=== PATIENT | female | born 1985 | race Hispanic/Latino ===

== ENCOUNTER 2018-03-04 03:59 | Inpatient (IN) | payer BC ==
[2018-03-04] MEDS ORDERED: Ringers Lactate 1,000 ML IV PRN (04:39)
[2018-03-04] MEDS ORDERED: Ringers Lactate 1,000 ML IV SCH (05:00)
[2018-03-04 05:06] LABS: RPR Titer ND
[2018-03-04] MEDS ORDERED: BUTORPHANOL 1 MG/ML INJ IV PRN (05:07)
[2018-03-04] MEDS ORDERED: PROMETHAZINE 25 MG/ML VIAL IV PRN (05:08)
[2018-03-04 05:12] LABS: Absolute Lymphocytes (CBC) 2.5 K/uL (0.7-4.9); Absolute Monocytes 0.6 K/uL (0.1-1.3); Absolute Neutrophil 11.2 K/uL (1.8-8.0); Basophils % 0.6 % (0-1.3); Eosinophils % 0.5 % (0-4.4); Hematocrit 40.8 % (36.0-45.0); Lymphocytes % 17.3 % (15.3-44.8); MCH 29.9 pg (27.0-35.0); MPV 10.1 fL (7.6-11.3); Monocytes % 4.4 % (3.3-12.3); RBC Red Blood Cell Count 4.74 M/uL (3.86-4.86); Urine Appearance CLEAR; Urine Bilirubin NEGATIVE (NEG); Urine Blood NEGATIVE (NEG); Urine Color YELLOW; Urine Glucose NEGATIVE (NEG); Urine Protein TRACE (NEG); Urine Specific Gravity 1.025 (1.005-1.030); Urine Urobilinogen 0.2 mg/dL (0.2-1.0); Urine pH 6.5 (5.0-7.0)
[2018-03-04 05:41] LABS: Urine Microscopic Reflex ORDER UMIC
[2018-03-04 05:54] LABS: Urine Bacteria <20 /HPF (<20); Urine RBC NONE SEEN /HPF (NONE SEEN)
[2018-03-04 05:55] LABS: Urine Culture Reflex Order NOT NEEDED; Urine Mucus HEAVY /HPF (NONE SEEN)
[2018-03-04] MEDS ORDERED: FENTANYL CITR 100 MCG/2 ML ONE (06:19)
[2018-03-04] MEDS ORDERED: ROPIVACAINE HCL 100 ML IV ONE (06:20)
[2018-03-04] MEDS ORDERED: ROPIVACAINE HCL 0 ML ONE (06:20)
--- NOTE | 2018-03-04 07:11 | PREOPHP ---
Date of Admission: 03/04/2018 Indication: Ms. Mathis is a 32-year-old female, 2, para 1-0-0-0, with prior child dying from failure to thrive and unspecified condition at approximately 5-6 years of age. Ms. Mathis has been followed by me during this without complications other than prior w ith poor history. All testing has been normal. She presents to Labor and Delivery with contractions since earlier in the evening. She denies rupture of membranes, significant vaginal bleeding, or spo tting. Past Medical History: Please see records. Family History: Please see records. Review of Systems: She reports no recent cough, cold, fever, or chills. No recent nausea or vomiting. She denies any b reast lumps. Infant has been active. She denies rupture of membranes or any significant vaginal ble eding. She denies any bowel issues or bladder issues. Physical Examination: General: Reveals pleasant female, in mild discomfort. Neck: Supple without adenopathy or thyromegaly. Lungs: Clear. Cardiac: Regular rate and rhythm without murmurs. Breasts: Not examined. Abdomen: Estimated weight approximately 7+ pounds. Pelvic: Cervix noted to be 3 cm, completely effaced, -1 to 0 station, vertex presentation. Extremities: Trace lower extremity edema. Impression: Thirty-nine week , active labor, prior poor obstetrical history. Plan: The patient will be admitted for labor. MARIELOS/TRIXIE Voice ID: [id number]
[2018-03-04] MEDS ORDERED: OXYTOCIN/LR 20 UNIT/1,000 ML BAG IV ONE (07:13)
[2018-03-04 08:14] VITALS: BMI 29.0
[2018-03-04] MEDS ORDERED: CARBOPROST TROME 250 MCG/ML IM ONE (08:17)
[2018-03-04] MEDS ORDERED: METHYLERGONOVINE 0.2MG/ML AMP IM ONE (08:18)
[2018-03-04] MEDS ORDERED: LIDOCAINE 1% MPF 5 ML VIAL ONE (10:25)
[2018-03-04] MEDS ORDERED: CARBOPROST TROME 250 MCG/ML IM PRN (10:29)
[2018-03-04] MEDS ORDERED: IBUPROFEN 200 MG TAB PO PRN (10:29)
[2018-03-04] MEDS ORDERED: METHYLERGONOVINE 0.2MG/ML AMP IM PRN (10:29)
[2018-03-04] MEDS ORDERED: ONDANSETRON 4 MG (ODT) TAB PO PRN (10:29)
[2018-03-04] MEDS ORDERED: METHYLERGONOVINE 0.2 MG TAB PO PRN (10:29)
[2018-03-04] MEDS ORDERED: Oxycodone HCl/Acetaminophen 1 TAB TAB PO PRN (10:29)
--- NOTE | 2018-03-04 10:33 | P.BOP ---
Preoperative diagnosis: 39 week Postoperative diagnosis: Viable female infant delivered, repair of perineal lacerationsX2 Primary procedure: SCVD viable infant Estimated blood loss: Less than 300ml Anesthesia: epidural Complications: None Transferred to: Other (274) Condition: Good
[2018-03-04] MEDS ORDERED: OXYTOCIN/LR 20 UNIT/1,000 ML BAG IV SCH (11:00)
[2018-03-04] MEDS ORDERED: Ringers Lactate 2,000 ML IV ONE (17:40)
[2018-03-04 18:18] LABS: RPR (Rapid Plasma Reagin) NON-REACT (NON-REACT)
[2018-03-05 14:43] VITALS: BP 125/80; TEMP 98
--- NOTE | 2018-03-05 17:13 | OP ---
Surgeon: Wai Tadeo MD Delivery Note: Ms. Mathis is a 32-year-old female, 2, para 1-0-0-0 with 1 p rior child expiring approximately 8 years of life. Her family had just arrive. She has been followe d by me during this with that history and presents at 39 weeks gestation with early labor, noted to be 3 cm dilated and completely effaced, -1 station, vertex presentation. After admission, a ugmentation with Pitocin., She had a first stage of labor of approximately 2 hours and 8 minutes. S econd stage of labor 52 minute. She delivered by spontaneous controlled vaginal delivery by low outl et forceps of a 7 pounds 10 ounce female infant, 7 and 9. The infant was delivered vertex OA. The cord was clamped, cut, and because of some limpness on the part of the , the infant was pl aced in a warmer rather the mother's abdomen. Cord blood was obtained. Placenta was spontaneously e xpelled and appeared to be intact. Intrauterine examination revealed no retained placental fragments . Right mediolateral episiotomy had been performed. This was repaired in the usual fashion with 3-0 Vicryl suture. Estimated total blood loss was less than 400 cc. The patient had 1 mg of Stadol, 12 .5 mg of Phenergan IV given initially and then epidural catheter was placed and received excellent be nefit from this. She was delivered by low outlet forceps secondary to moderate variable deceleration s during portion of second stage of labor. MARIELOS/TRIXIE Voice ID: [id number] Report ID: [id number]
--- NOTE | 2018-03-06 04:58 | DS ---
Date of Discharge: 03/05/2018 DISMISSAL SUMMARY Final Hospital Discharge Diagnosis: A 39 week , delivered. Complications: None. Procedures: Artificial rupture of membranes, Pitocin augmentation of labor, low outlet forceps deliv lazaro of viable female infant, right midline episiotomy with repair. Hospital Course: The patient is a 32-year-old female, 2, para 1-0-0-0, 39 w eeks gestation, admitted in prodromal labor. She had an uneventful labor and delivery and delivered a 7-pound 10-ounce female , Apgars 7 and 9 with epidural anesthesia over a right midline episio estefani. She was dismissed on the first day, ambulatory on a select diet with routine post v aginal delivery activity restrictions, to be seen back in my office in 6 weeks. Lab work included an admission hemoglobin and hematocrit of 14.2 and 40.8, dismissal hematocrit of 38.0. She had a negat gladys urinalysis and nonreactive RPR. She is O positive blood type, rubella immune. She was dismissed to be seen back in my office in 6 weeks with the usual post vaginal delivery activity restrictions w ith a prescription for Tylenol No. 3 #15 for pain relief. MARIELOS/TRIXIE Voice ID: [id number] Report ID: [id number]
[2018-03-06 14:07] LABS: HBsAG Nonreactive (Nonreactive)
== END 2018-03-05 14:25 | disposition home or self-care (01) | DRG 775 ==
LOC: L&D 03:59 → 2ND-WC 04:52
PROVIDERS: ADMIT Specialist; ATTEND Specialist
PROC: 10D07Z3 Extraction of Products of Conception, Low Forceps, Via Natural or Artificial Opening (ICD-10-PCS; principal; 2018-03-04)
PROC: 0W8NXZZ Division of Female Perineum, External Approach (ICD-10-PCS; 2018-03-04)
PROC: 10907ZC Drainage of Amniotic Fluid, Therapeutic from Products of Conception, Via Natural or Artificial Opening (ICD-10-PCS; 2018-03-04)
PROC: 0HQ9XZZ Repair Perineum Skin, External Approach (ICD-10-PCS; 2018-03-04)
DX: O76 Abnormality in fetal heart rate and rhythm complicating labor and delivery (principal); Z3A.39 39 weeks gestation of pregnancy; Z37.0 Single live birth; O70.0 First degree perineal laceration during delivery
CPT/HCPCS: 36415; 81003; 81015; 85014; 85025; 86592; 86850; 86900; 86901; 87340; J0595; J2210; J2550; J2590; J2795; J3010

== ENCOUNTER 2020-07-23 21:47 | Emergency (ER) | payer BC ==
--- OUTSIDE RECORDS SUMMARY | 2020-07-23 21:50 | XMS REPORT | Continuity of Care Document ---
:1985 Author Organization [facility] Care Team Providers Name Role Phone [facility] Unavailable Un available Problems Problem Status Onset Classification Date Comments Sourc e Date Reported Multiple Active 12/30[facility]2013 [facility] Sclerosis Burning Active 12/30/2013 [facility] Sensation (Dysesthesia) Chronic Active 12/30/2013 [facility] Tension-type Headache Chronic Active 08/26/2012 [facility] Tension-Type Headache Memory Lapses Active 12/30/2013 [facility] Or Loss Fatigue Active 12/30/2013 [facility] Medications Medication Details Route Status Patient Ordering Order Source Instructions Provider Date FLUoxetine HCl ; Start Date: Active [facility] 10 MG Oral 12/30/20132013 [facility] Tablet End Date: (Active) Copaxone 20 ; Start Date: Active 07/01/ [facility] 07/01/20132012 [facility] Subcutaneous (Active) Kit Amantadine HCl ; Start Date: Active 07/01/ [facility] 100 MG Oral 07/01/20132012 Physician [facility] Tablet (Active) Copaxone 20 ; Start Date: Active 07/01/ [facility]/ML 07/01/20132012 [facility] Subcutaneous (Active) Kit Copaxone 20 ; Start Date: Inactive 08/25/ [facility] ; 1900 [facility] Subcutaneous End Date: Kit (Active) Copaxone 20 (Active) Active [facility] Subcutaneous Kit No Active No Active Active [facility] Allergies, Adverse Reactions, Alerts Substance Category Reaction Severity Reaction Status Date Comments S ource type Reported No Known drug drug Active [facility] allergy allergy [facility] Allergies Immunizations No Data Provided for This Section Results No Data Provided for This Section Pathology Reports No Data Provided for This Section Diagnostic Reports No Data Provided for This Section Consultation Notes No Data Provided for This Section Discharge Summaries No Data Provided for This Section History and Physicals No Data Provided for This Section Vital Signs No Data Provided for This Section Encounters Location Location Encounter Encounter Reason Attending ADM OR Stat us Source Details Type Number For Provider Date Date Visit AUDIT [id number] 03/19 /2011 [facility] AUD[facility] [id number] 03/19 /2011 [facility] [place], [id number] 04/17 03/19 [facility] Provider: SIMEON Mcwilliams, Status: Pen, Time: 11:00 AM AUDIT [id number] 04/17 [facility] AUDIT [id number] 04/23 /2011 [facility] AUDIT [id number] 07/09 /2011 [facility] AUDIT [id number] 08/26 /2012 [facility] IEJeanine, [id number] 01/07 08/26 [facility] Provider: SIMEON Mcwilliams, Status: Pen, Time: 4:30 PM AUDIT [id number] 01/07 /2012 [facility] AUDIT [id number] 01/14 /2012 [facility] AUD[facility] [id number] 01/22 /2012 [facility] AUDIT [id number] 02/26 /2012 [facility] IEJeanine, [id number] 07/01 02/27 [facility] Provider: SIMEON Mcwilliams, Status: Pen, Time: 11:00 AM AUDIT [id number] 07/01 /2012 [facility] AUDIT [id number] 07/06 /2012 [facility] [place], [id number] 12/30 07/07 [facility] Provider: SIMEON Mcwilliams, Status: Pen, Time: 11:00 AM AUDIT [id number] 12/30 [facility] Procedures No Data Provided for This Section Assessment and Plan No Data Provided for This Section Plan of Care Plan of Care Date Source [Q] COMPREHENSIVE METABOLIC PANEL 12/30/2013 [facility] W/eGFR (REFL) 07/01/2013 [facility][QLH] CBC (INCLUDES DIFF/PLT) 07/01/2013 Rout[facility][LH] Vitamin D, 25-Hydroxy, Total* (E) 07/01/2013 Routine[QL] VITAMIN D, 25-HYDROXY, LC/MS/MS 12/30/2013 Routine [QL] VITAMIN D, 25-HYDROXY, 07/07/2013 [facility] LC/MS/MS 07/09/2012 Routine[Q] COMPREHENSIVE METABOLIC PANEL W/eGFR (REFL) 07/31/2012 Routine[Q] COMPREHENSIVE METABOLIC PANEL W/eGFR (REFL) 07/01/2013 Routine[QLH] CBC (INCLUDES DIFF/PLT) 07/01/2013 Routine[LH] Vitamin D, 25-Hydroxy, Total* (E) 07/01/2013 Routine [QL] VITAMIN D, 25-HYDROXY, 07/01/2013 [facility] LC/MS/MS 07/09/2012 Routine[Q] COMPREHENSIVE METABOLIC PANEL W/eGFR (REFL) 07/31/2012 Routine[Q] COMPREHENSIVE METABOLIC PANEL W/eGFR (REFL) 07/01/2013 Routine[QLH] CBC (INCLUDES DIFF/PLT) 07/01/2013 Routine[LH] Vitamin D, 25-Hydroxy, Total* (E) 07/01/2013 Routine [QL] NEUROMYELITIS OPTICA NMO 02/27/2013 [facility] AUTOANTIBODY, IGG,SERUM 03/19/2012 Routine[H] C-ANCA Titer 03/19/2012 Routine[H] P-ANCA Titer 03/19/2012 Routine[QLH] DNA (DS) ANTIBODY 03/19/2012 Routine[L] WENDI 03/19/2012 Routine[QLH] ANGIOTENSIN CONVERTING ENZYME (DEBI) 03/19/2012 Routine[QLH] SJOGRENS ANTIBODIES (SS-A,SS-B) 03/19/2012 Routine[QLH] Lupus Anticoagulant Panel 03/19/2012 Routine[QLH] RPR 03/19/2012 Routine[QL] ANTIPHOSPHOLIPID ANTIBODY PANEL 03/19/2012 Routine[Q] METHYLMALONIC ACID AND HOMOCYSTEINE (NUTRITIONAL AND CONGENITAL) 03/19/2012 Routine[QLH] VITAMIN B12 03/19/2012 RoutineLumbar Puncture 04/17/2012 Routine[LH] IgG CSF 04/17/2012 Routine[QLH] OLIGOCLONAL BANDS, CSF 04/17/2012 Routine[QLH] CELL COUNT AND DIFF, CSF 04/17/2012 Routine[QLH] PROTEIN, TOTAL, CSF 04/17/2012 Routine[QLH] GLUCOSE, CSF 04/17/2012 Routine[Q] COMPREHENSIVE METABOLIC PANEL W/eGFR (REFL) 07/31/2012 Routine[QL] VITAMIN D, 25-HYDROXY, LC/MS/MS 07/09/2012 Routine [QL] NEUROMYELITIS OPTICA NMO 01/23/2013 [facility] AUTOANTIBODY, IGG,SERUM 03/19/2012 Routine[H] C-ANCA Titer 03/19/2012 Routine[H] P-ANCA Titer 03/19/2012 Routine[QLH] DNA (DS) ANTIBODY 03/19/2012 Routine[L] WENDI 03/19/2012 Routine[QLH] ANGIOTENSIN CONVERTING ENZYME (DEBI) 03/19/2012 Routine[QLH] SJOGRENS ANTIBODIES (SS-A,SS-B) 03/19/2012 Routine[QLH] Lupus Anticoagulant Panel 03/19/2012 Routine[QLH] RPR 03/19/2012 Routine[QL] ANTIPHOSPHOLIPID ANTIBODY PANEL 03/19/2012 Routine[Q] METHYLMALONIC ACID AND HOMOCYSTEINE (NUTRITIONAL AND CONGENITAL) 03/19/2012 Routine[QLH] VITAMIN B12 03/19/2012 RoutineLumbar Puncture 04/17/2012 Routine[LH] IgG CSF 04/17/2012 Routine[QLH] OLIGOCLONAL BANDS, CSF 04/17/2012 Routine[QLH] CELL COUNT AND DIFF, CSF 04/17/2012 Routine[QLH] PROTEIN, TOTAL, CSF 04/17/2012 Routine[QLH] GLUCOSE, CSF 04/17/2012 Routine[QL] VITAMIN D, 25-HYDROXY, LC/MS/MS 07/09/2012 Routine[Q] COMPREHENSIVE METABOLIC PANEL W/eGFR (REFL) 07/31/2012 Routine [QLH] DNA (DS) ANTIBODY 03/19/2012 01/15/2013 [facility] Routine[H] P-ANCA Titer 03/19/2012 Routine[H] C-ANCA Titer 03/19/2012 Routine[QL] NEUROMYELITIS OPTICA NMO AUTOANTIBODY, IGG,SERUM 03/19/2012 Routine[QLH] VITAMIN B12 03/19/2012 Routine[Q] METHYLMALONIC ACID AND HOMOCYSTEINE (NUTRITIONAL AND CONGENITAL) 03/19/2012 Routine[QL] ANTIPHOSPHOLIPID ANTIBODY PANEL 03/19/2012 Routine[QLH] SJOGRENS ANTIBODIES (SS-A,SS-B) 03/19/2012 Routine[QLH] ANGIOTENSIN CONVERTING ENZYME (DEBI) 03/19/2012 Routine[L] WENDI 03/19/2012 Routine[QLH] RPR 03/19/2012 Routine[QLH] Lupus Anticoagulant Panel 03/19/2012 Routine[QL] VITAMIN D, 25-HYDROXY, LC/MS/MS 07/09/2012 Routine[Q] COMPREHENSIVE METABOLIC PANEL W/eGFR (REFL) 07/31/2012 Routine[QLH] GLUCOSE, CSF 04/17/2012 Routine[QLH] PROTEIN, TOTAL, CSF 04/17/2012 RoutineLumbar Puncture 04/17/2012 Routine[QLH] CELL COUNT AND DIFF, CSF 04/17/2012 Routine[QLH] OLIGOCLONAL BANDS, CSF 04/17/2012 Routine[LH] IgG CSF 04/17/2012 Routine [QL] NEUROMYELITIS OPTICA NMO 01/08/2013 [facility] AUTOANTIBODY, IGG,SERUM 03/19/2012 Routine[H] C-ANCA Titer 03/19/2012 Routine[H] P-ANCA Titer 03/19/2012 Routine[QLH] DNA (DS) ANTIBODY 03/19/2012 Routine[L] WENDI 03/19/2012 Routine[QLH] ANGIOTENSIN CONVERTING ENZYME (EDBI) 03/19/2012 Routine[QLH] SJOGRENS ANTIBODIES (SS-A,SS-B) 03/19/2012 Routine[QLH] Lupus Anticoagulant Panel 03/19/2012 Routine[QLH] RPR 03/19/2012 Routine[QL] ANTIPHOSPHOLIPID ANTIBODY PANEL 03/19/2012 Routine[Q] METHYLMALONIC ACID AND HOMOCYSTEINE (NUTRITIONAL AND CONGENITAL) 03/19/2012 Routine[QLH] VITAMIN B12 03/19/2012 RoutineLumbar Puncture 04/17/2012 Routine[LH] IgG CSF 04/17/2012 Routine[QLH] OLIGOCLONAL BANDS, CSF 04/17/2012 Routine[QLH] CELL COUNT AND DIFF, CSF 04/17/2012 Routine[QLH] PROTEIN, TOTAL, CSF 04/17/2012 Routine[QLH] GLUCOSE, CSF 04/17/2012 Routine[QL] VITAMIN D, 25-HYDROXY, LC/MS/MS 07/09/2012 Routine[Q] COMPREHENSIVE METABOLIC PANEL W/eGFR (REFL) 07/31/2012 Routine [QL] VITAMIN D, 25-HYDROXY, 08/26/2012 [facility] LC/MS/MS 07/09/2012 Routine[QLH] VITAMIN B12 03/19/2012 Routine[Q] METHYLMALONIC ACID AND HOMOCYSTEINE (NUTRITIONAL AND CONGENITAL) 03/19/2012 Routine[QL] ANTIPHOSPHOLIPID ANTIBODY PANEL 03/19/2012 Routine[QLH] RPR 03/19/2012 Routine[QLH] Lupus Anticoagulant Panel 03/19/2012 Routine[QLH] SJOGRENS ANTIBODIES (SS-A,SS-B) 03/19/2012 Routine[QLH] ANGIOTENSIN CONVERTING ENZYME (DEBI) 03/19/2012 Routine[L] WENDI 03/19/2012 Routine[QLH] DNA (DS) ANTIBODY 03/19/2012 Routine[H] P-ANCA Titer 03/19/2012 Routine[H] C-ANCA Titer 03/19/2012 Routine[QL] NEUROMYELITIS OPTICA NMO AUTOANTIBODY, IGG,SERUM 03/19/2012 Routine[Q] COMPREHENSIVE METABOLIC PANEL W/eGFR (REFL) 07/31/2012 Routine[QLH] GLUCOSE, CSF 04/17/2012 Routine[QLH] PROTEIN, TOTAL, CSF 04/17/2012 Routine[QLH] CELL COUNT AND DIFF, CSF 04/17/2012 Routine[QLH] OLIGOCLONAL BANDS, CSF 04/17/2012 Routine[LH] IgG CSF 04/17/2012 RoutineLumbar Puncture 04/17/2012 Routine [QL] NEUROMYELITIS OPTICA NMO 07/09/2012 [facility] AUTOANTIBODY, IGG,SERUM 03/19/2012 Routine[H] C-ANCA Titer 03/19/2012 Routine[H] P-ANCA Titer 03/19/2012 Routine[QLH] DNA (DS) ANTIBODY 03/19/2012 Routine[L] WENDI 03/19/2012 Routine[QLH] ANGIOTENSIN CONVERTING ENZYME (DEBI) 03/19/2012 Routine[QLH] SJOGRENS ANTIBODIES (SS-A,SS-B) 03/19/2012 Routine[QLH] Lupus Anticoagulant Panel 03/19/2012 Routine[QLH] RPR 03/19/2012 Routine[QL] ANTIPHOSPHOLIPID ANTIBODY PANEL 03/19/2012 Routine[Q] METHYLMALONIC ACID AND HOMOCYSTEINE (NUTRITIONAL AND CONGENITAL) 03/19/2012 Routine[QLH] VITAMIN B12 03/19/2012 RoutineLumbar Puncture 04/17/2012 Routine[LH] IgG CSF 04/17/2012 Routine[QLH] OLIGOCLONAL BANDS, CSF 04/17/2012 Routine[QLH] CELL COUNT AND DIFF, CSF 04/17/2012 Routine[QLH] PROTEIN, TOTAL, CSF 04/17/2012 Routine[QLH] GLUCOSE, CSF 04/17/2012 Routine[QLH] CBC (INCLUDES DIFF/PLT) 07/09/2012 Routine[QLH] CMP W/EGFR 07/09/2012 Routine[QLH] CBC (INCLUDES DIFF/PLT) 07/09/2012 Routine[QLH] CMP W/EGFR 07/09/2012 Routine[QL] VITAMIN D, 25-HYDROXY, LC/MS/MS 07/09/2012 Routine [QL] NEUROMYELITIS OPTICA NMO 04/23/2012 [facility] AUTOANTIBODY, IGG,SERUM 03/19/2012 Routine[H] C-ANCA Titer 03/19/2012 Routine[H] P-ANCA Titer 03/19/2012 Routine[QLH] DNA (DS) ANTIBODY 03/19/2012 Routine[L] WENDI 03/19/2012 Routine[QLH] ANGIOTENSIN CONVERTING ENZYME (DEBI) 03/19/2012 Routine[QLH] SJOGRENS ANTIBODIES (SS-A,SS-B) 03/19/2012 Routine[QLH] Lupus Anticoagulant Panel 03/19/2012 Routine[QLH] RPR 03/19/2012 Routine[QL] ANTIPHOSPHOLIPID ANTIBODY PANEL 03/19/2012 Routine[Q] METHYLMALONIC ACID AND HOMOCYSTEINE (NUTRITIONAL AND CONGENITAL) 03/19/2012 Routine[QLH] VITAMIN B12 03/19/2012 RoutineLumbar Puncture 04/17/2012 Routine[LH] IgG CSF 04/17/2012 Routine[QLH] OLIGOCLONAL BANDS, CSF 04/17/2012 Routine[QLH] CELL COUNT AND DIFF, CSF 04/17/2012 Routine[QLH] PROTEIN, TOTAL, CSF 04/17/2012 Routine[QLH] GLUCOSE, CSF 04/17/2012 Routine [QL] NEUROMYELITIS OPTICA NMO 04/17/2012 [facility] AUTOANTIBODY, IGG,SERUM 03/19/2012 Routine[H] C-ANCA Titer 03/19/2012 Routine[H] P-ANCA Titer 03/19/2012 Routine[QLH] DNA (DS) ANTIBODY 03/19/2012 Routine[L] WENDI 03/19/2012 Routine[QLH] ANGIOTENSIN CONVERTING ENZYME (DEBI) 03/19/2012 Routine[QLH] SJOGRENS ANTIBODIES (SS-A,SS-B) 03/19/2012 Routine[QLH] Lupus Anticoagulant Panel 03/19/2012 Routine[QLH] RPR 03/19/2012 Routine[QL] ANTIPHOSPHOLIPID ANTIBODY PANEL 03/19/2012 Routine[Q] METHYLMALONIC ACID AND HOMOCYSTEINE (NUTRITIONAL AND CONGENITAL) 03/19/2012 Routine[QLH] VITAMIN B12 03/19/2012 RoutineLumbar Puncture 04/17/2012 Routine[LH] IgG CSF 04/17/2012 Routine[QLH] OLIGOCLONAL BANDS, CSF 04/17/2012 Routine[QLH] CELL COUNT AND DIFF, CSF 04/17/2012 Routine[QLH] PROTEIN, TOTAL, CSF 04/17/2012 Routine[QLH] GLUCOSE, CSF 04/17/2012 Routine [QL] NEUROMYELITIS OPTICA NMO 03/19/2012 [facility] AUTOANTIBODY, IGG,SERUM 03/19/2012 Routine[H] C-ANCA Titer 03/19/2012 Routine[H] P-ANCA Titer 03/19/2012 Routine[QLH] DNA (DS) ANTIBODY 03/19/2012 Routine[L] WENDI 03/19/2012 Routine[QLH] ANGIOTENSIN CONVERTING ENZYME (DEBI) 03/19/2012 Routine[QLH] SJOGRENS ANTIBODIES (SS-A,SS-B) 03/19/2012 Routine[QLH] Lupus Anticoagulant Panel 03/19/2012 Routine[QLH] RPR 03/19/2012 Routine[QL] ANTIPHOSPHOLIPID ANTIBODY PANEL 03/19/2012 Routine[Q] METHYLMALONIC ACID AND HOMOCYSTEINE (NUTRITIONAL AND CONGENITAL) 03/19/2012 Routine[QLH] VITAMIN B12 03/19/2012 Routine Social History Social History Date Source No History of Being A Social 12/30/2013 [facility] (Denied) Never A Smoker (Active) Family History Value Date Source Family history of Hyperlipidemia 12/30/2013 [facility] (Active) Family history of Hypertension (V17.49); (Active) Family history of Heart Disease (V17.49); (Active) Family history of Stroke Syndrome (V17.1); (Active) Family history of Hyperlipidemia 07/07/2013 [facility] (Active) Family history of Hypertension (V17.49); (Active) Family history of Heart Disease (V17.49); (Active) Family history of Stroke Syndrome (V17.1); (Active) Family history of Hyperlipidemia 07/01/2013 [facility] (Active) Family history of Hypertension (V17.49); (Active) Family history of Heart Disease (V17.49); (Active) Family history of Stroke Syndrome (V17.1); (Active) Family history of Stroke Syndrome 02/27/2013 [facility] (V17.1); (Active) Family history of Heart Disease (V17.49); (Active) Family history of Hypertension (V17.49); (Active) Family history of Hyperlipidemia (Active) Family history of Hyperlipidemia 01/23/2013 [facility] (Active) Family history of Hypertension (V17.49); (Active) Family history of Heart Disease (V17.49); (Active) Family history of Stroke Syndrome (V17.1); (Active) Family history of Hyperlipidemia 01/15/2013 [facility] (Active) Family history of Hypertension (V17.49); (Active) Family history of Heart Disease (V17.49); (Active) Family history of Stroke Syndrome (V17.1); (Active) Family history of Hyperlipidemia 01/08/2013 [facility] (Active) Family history of Hypertension (V17.49); (Active) Family history of Heart Disease (V17.49); (Active) Family history of Stroke Syndrome (V17.1); (Active) Family history of Hyperlipidemia 08/26/2012 [facility] (Active) Family history of Hypertension (V17.49); (Active) Family history of Heart Disease (V17.49); (Active) Family history of Stroke Syndrome (V17.1); (Active) Family history of Hyperlipidemia 07/09/2012 [facility] (Active) Family history of Hypertension (V17.49); (Active) Family history of Heart Disease (V17.49); (Active) Family history of Stroke Syndrome (V17.1); (Active) Family history of Hyperlipidemia 04/23/2012 [facility] (Active) Family history of Hypertension (V17.49); (Active) Family history of Heart Disease (V17.49); (Active) Family history of Stroke Syndrome (V17.1); (Active) Family history of Hyperlipidemia 04/17/2012 [facility] (Active) Family history of Hypertension (V17.49); (Active) Family history of Heart Disease (V17.49); (Active) Family history of Stroke Syndrome (V17.1); (Active) Family history of Hyperlipidemia 03/19/2012 [facility] (Active) Family history of Hypertension (V17.49); (Active) Family history of Heart Disease (V17.49); (Active) Family history of Stroke Syndrome (V17.1); (Active) Family history of Hyperlipidemia 03/19/2012 [facility] (Active) Family history of Hypertension (V17.49); (Active) Family history of Heart Disease (V17.49); (Active) Family history of Stroke Syndrome (V17.1); (Active) Advance Directives Order Name Results Value Date Source Advance Directives Advance Directives No Advance 12/30/2013 [facility] Directives available. Advance Directives Advance Directives No Advance 07/07/2013 [facility] Directives available. Advance Directives Advance Directives No Advance 07/01/2013 [facility] Directives available. Advance Directives Advance Directives No Advance 02/27/2013 [facility] Directives available. Advance Directives Advance Directives No Advance 01/23/2013 [facility] Directives available. Advance Directives Advance Directives No Advance 01/15/2013 [facility] Directives available. Advance Directives Advance Directives No Advance 01/08/2013 [facility] Directives available. Advance Directives Advance Directives No Advance 08/26/2012 [facility] Directives available. Advance Directives Advance Directives No Advance 07/09/2012 [facility] Directives available. Advance Directives Advance Directives No Advance 04/23/2012 [facility] Directives available. Advance Directives Advance Directives No Advance 04/17/2012 [facility] Directives available. Advance Directives Advance Directives No Advance 03/19/2012 [facility] Directives available. Advance Directives Advance Directives No Advance 03/19/2012 [facility] Directives available. Functional Status No Data Provided for This Section
[2020-07-23 22:20] LABS: Absolute Lymphocytes (CBC) 3.2 K/uL (0.7-4.9); Hematocrit 40.1 % (36.0-45.0); Lymphocytes % 39.5 % (15.3-44.8); MPV 8.4 fL (7.6-11.3); RBC Red Blood Cell Count 4.86 M/uL (3.86-4.86)
[2020-07-23 22:22] LABS: Protime INR 0.96
[2020-07-23] MEDS ORDERED: LORazepam 2 MG/ML VIAL ONE (22:41)
[2020-07-23 22:48] LABS: ALT/SGPT 17 U/L (12-78); AST/SGOT 15 U/L (15-37); Albumin 3.7 g/dL (3.4-5.0); Alkaline Phosphatase 74 U/L (45-117); BUN Blood Urea Nitrogen 13 mg/dL (7-18); Bicarbonate 26 mmol/L (21-32); Bilirubin Direct < 0.1 mg/dL (0-0.2); Bilirubin Total 0.2 mg/dL (0.2-1.0); Glucose Level 101 mg/dL (74-106); Magnesium 2.3 mg/dL (1.8-2.4); NT PRO-BNP 71 pg/mL (<125); Potassium 3.6 mmol/L (3.5-5.1); Protein, Total 7.6 g/dL (6.4-8.2); Sodium Level 140 mmol/L (136-145); Troponin (Emerg Dept Use Only) < 0.02 ng/mL (0.0-0.045)
--- NOTE | 2020-07-23 23:25 | EDPHYS ---
Physician Documentation [facility] Name: Brandy Mathis Age: 34 yrs Sex: Female : 1985 Arrival Date: 07/23/2020 Time: 21:48 Bed 5 Private MD: Larry Casillas B ED Physician Adeline Hernandez HPI: 07/23 22:15 This 34 yrs old Female presents to ER via Unassigned with complaints of Chest ma2 Pain, Numbness Of Arm. 22:15 The patient or guardian reports chest pain that is located primarily in the anterior ma2 chest wall. Associated signs and symptoms: Pertinent negatives: diaphoresis, lower extremity swelling, nausea. The chest pain is described as burning. Severity of pain: At its worst the pain was mild in the emergency department the pain is unchanged. Severity of pain: At its worst the pain was in the emergency department the pain is unchanged has resolved and did so just prior to arrival. The patient has not experienced similar symptoms in the past. 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 - Social history:: Patient/guardian denies using alcohol, street drugs, The patient lives with family, Smoking status: unknown Patient/guardian denies using. - Family history:: not pertinent. ROS: 22:15 Constitutional: Negative for fever, chills, and weight loss. ma2 22:15 All other systems are negative. Exam: 22:15 Constitutional: This is a well developed, well nourished patient who is awake, alert, ma2 and in no acute distress. Head/Face: Normocephalic, atraumatic. Eyes: Pupils equal round and reactive to light, extra-ocular motions intact. Lids and lashes normal. Conjunctiva and sclera are non-icteric and not injected. Cornea within normal limits. Periorbital areas with no swelling, redness, or edema. ENT: Nares patent. No nasal discharge, no septal abnormalities noted. Tympanic membranes are normal and external auditory canals are clear. Oropharynx with no redness, swelling, or masses, exudates, or evidence of obstruction, uvula midline. Mucous membranes moist. Neck: Trachea midline, no thyromegaly or masses palpated, and no cervical lymphadenopathy. Supple, full range of motion without nuchal rigidity, or vertebral point tenderness. No Meningismus. Chest/axilla: Normal chest wall appearance and motion. Nontender with no deformity. No lesions are appreciated. - reproducible chest pain Cardiovascular: Regular rate and rhythm with a normal S1 and S2. No gallops, murmurs, or rubs. Normal PMI, no JVD. No pulse deficits. Respiratory: Lungs have equal breath sounds bilaterally, clear to auscultation and percussion. No rales, rhonchi or wheezes noted. No increased work of breathing, no retractions or nasal flaring. Abdomen/GI: Soft, non-tender, with normal bowel sounds. No distension or tympany. No guarding or rebound. No evidence of tenderness throughout. Back: No spinal tenderness. No costovertebral tenderness. Full range of motion. Skin: Warm, dry with normal turgor. Normal color with no rashes, no lesions, and no evidence of cellulitis. MS/ Extremity: Pulses equal, no cyanosis. Neurovascular intact. Full, normal range of motion. Neuro: Awake and alert, GCS 15, oriented to person, place, time, and situation. Cranial nerves II-XII grossly intact. Motor strength 5/5 in all extremities. Sensory grossly intact. Cerebellar exam normal. Normal gait. Psych: Awake, alert, with orientation to person, place and time. Behavior, mood, and affect are within normal limits. Vital Signs: 22:00 BP 136 / 95; Pulse 74; Resp 16; Temp 98.4; Pulse Ox 100% ; Pain 6/10; rr5 22:34 Weight 64.86 kg; Height 5 ft. 5 in. (165.10 cm); rr5 23:00 BP 131 / 62; Pulse 79; Resp 17; Pulse Ox 100% ; rr5 23:44 BP 121 / 75; Pulse 70; Resp 19; Pulse Ox 99% ; rr5 22:34 Body Mass Index 23.80 (64.86 kg, 165.10 cm) rr5 MDM: 21:49 Patient medically screened. ma2 22:15 Differential diagnosis: anxiety, chest wall pain, gastroesophageal reflux disease ma2 (GERD), hiatal hernia. RACHAEL Risk Score: not applicable. Data reviewed: vital signs, nurses notes. 23:24 Counseling: I had a detailed discussion with the patient and/or guardian regarding: the [facility] historical points, exam findings, and any diagnostic results supporting the discharge/admit diagnosis, the presence of at least one elevated blood pressure reading (>120/80) during this emergency department visit, the need for outpatient follow up. Response to treatment: the patient's symptoms have resolved after treatment. 07/23 21:49 Order name: Basic Metabolic Panel; Complete Time: 23:05 la07/23 21:49 Order name: CBC with Diff; Complete Time: 23:05 la07/23 21:49 Order name: LFT's; Complete Time: 23:05 la07/23 21:49 Order name: Magnesium; Complete Time: 23:05 [facility] 07/23 21:49 Order name: NT PRO-BNP; Complete Time: 23:05 la07/23 21:49 Order name: PT-INR; Complete Time: 23:05 la07/23 21:49 Order name: Troponin (emerg Dept Use Only); Complete Time: 23:05 [facility] 07/23 21:49 Order name: XRAY Chest (1 view) [facility] 07/23 21:49 Order name: EKG; Complete Time: 21:51 07/23 21:49 Order name: Cardiac monitoring; Complete Time: 22:20 [facility] 07/23 21:49 Order name: EKG - Nurse/Tech; Complete Time: 22:20 la07/23 21:49 Order name: IV Saline Lock; Complete Time: 22:20 07/23 21:49 Order name: Labs collected and sent; Complete Time: 22:20 [facility] 07/23 21:49 Order name: O2 Per Protocol; Complete Time: 22:20 [facility] 07/23 21:49 Order name: O2 Sat Monitoring; Complete Time: 22:20 ma2 Administered Medications: 22:32 Drug: Ativan 1 mg Route: IVP; Site: left antecubital; ea 23:46 Follow up: Response: No adverse reaction rr5 Disposition: 07/23/20 23:24 Discharged to Home. Impression: Chest pain on breathing. - Condition is Stable. - Discharge Instructions: Chest Wall Pain. - Prescriptions for buspirone 5 mg Oral tablet - take 1 tablet by ORAL route 3 times per day; 30 tablet. - Medication Reconciliation Form, Thank You Letter, Antibiotic Education, Prescription Opioid Use, Work release form form. - Follow up: Private Physician; When: Tomorrow; Reason: If symptoms return. Signatures: Dispatcher [employer] EDJazlyn Shahid RN RN ea Alzahri, Mohammad, MD MD ma2 Addison Martinez RN RN rr5 Corrections: (The following items were deleted from the chart) 23:46 23:24 07/23/2020 23:24 Discharged to Home. Impression: Chest pain on breathing. rr5 Condition is Stable. Prescriptions for buspirone 5 mg Oral tablet - take 1 tablet by ORAL route 3 times per day; 30 tablet. and Forms are Medication Reconciliation Form, Thank You Letter, Antibiotic Education, Prescription Opioid Use. Follow up: Private Physician; When: Tomorrow; Reason: If symptoms return. ma2
--- NOTE | 2020-07-23 23:25 | ER ---
Nurse's Notes [facility] Name: Brandy Mathis Age: 34 yrs Sex: Female : 1985 Arrival Date: 07/23/2020 Time: 21:48 Bed 5 Private MD: Larry Casillas B Diagnosis: Chest pain on breathing Presentation: 07/23 22:00 Chief complaint: Patient states: having this chest discomfort and right arm numbness/ rr5 tingling feeling started today. 22:00 Coronavirus screen: Client denies travel out of the [place] in the last 14 days. At this rr5 time, the client does not indicate any symptoms associated with coronavirus-19. Ebola Screen: Patient negative for fever greater than or equal to 101.5 degrees Fahrenheit, and additional compatible Ebola Virus Disease symptoms Patient denies exposure to infectious person. Patient denies travel to an Ebola-affected area in the 21 days before illness onset. Initial Sepsis Screen: Does the patient meet any 2 criteria? No. Patient's initial sepsis screen is negative. Does the patient have a suspected source of infection? No. Patient's initial sepsis screen is negative. Risk Assessment: Do you want to hurt yourself or someone else? Patient reports no desire to harm self or others. Onset of symptoms was July 23, 2020. 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 - Social history:: Patient/guardian denies using alcohol, street drugs, The patient lives with family, Smoking status: unknown Patient/guardian denies using. - Family history:: not pertinent. Screenin:05 Abuse screen: Denies threats or abuse. Denies injuries from another. Nutritional rr5 screening: No deficits noted. Tuberculosis screening: No symptoms or risk factors identified. Fall Risk IV access (20 points). Total Ott Fall Scale indicates No Risk (0-24 pts). Assessment: 22:00 General: Appears in no apparent distress. uncomfortable, Behavior is calm, cooperative, rr5 appropriate for age. Pain: Complains of pain in chest Pain radiates to right arm Pain currently is 6 out of 10 on a pain scale. Quality of pain is described as aching, Pain began gradually, Is intermittent. Neuro: Level of Consciousness is awake, alert, obeys commands, Oriented to person, place, time, situation, Reports numbness in right arm. Cardiovascular: Reports chest pain, Capillary refill < 3 seconds Patient's skin is warm and dry. Respiratory: Airway is patent Respiratory effort is even, unlabored, Respiratory pattern is regular, symmetrical. GI: No signs and/or symptoms were reported involving the gastrointestinal system. : No signs and/or symptoms were reported regarding the genitourinary system. EENT: No signs and/or symptoms were reported regarding the EENT system. Derm: Skin is intact, is healthy with good turgor, Skin temperature is warm. Musculoskeletal: Capillary refill < 3 seconds, Reports pain in chest and right arm. 23:00 Reassessment: Patient appears in no apparent distress at this time. Patient is alert, rr5 oriented x 3, equal unlabored respirations, skin warm/dry/pink. awaiting for results. 23:42 Reassessment: Patient appears in no apparent distress at this time. Patient is alert, rr5 oriented x 3, equal unlabored respirations, skin warm/dry/pink. discharge instruction given and explained without complaints made. awaiting for her brother to pick her up. Vital Signs: 22:00 BP 136 / 95; Pulse 74; Resp 16; Temp 98.4; Pulse Ox 100% ; Pain 6/10; rr5 22:34 Weight 64.86 kg; Height 5 ft. 5 in. (165.10 cm); rr5 23:00 BP 131 / 62; Pulse 79; Resp 17; Pulse Ox 100% ; rr5 23:44 BP 121 / 75; Pulse 70; Resp 19; Pulse Ox 99% ; rr5 22:34 Body Mass Index 23.80 (64.86 kg, 165.10 cm) rr5 ED Course: 21:48 Patient arrived in ED. am2 21:49 Larry Casillas MD is Private Physician. am2 21:49 Adeline Hernandez MD is Attending Physician. ma2 22:00 Arm band placed on right wrist. rr5 22:00 EKG completed in triage. Results shown to MD. rr5 22:00 Patient has correct armband on for positive identification. Placed in gown. Bed in low rr5 position. Call light in reach. assistant curator on. Pulse ox on. NIBP on. 22:00 EKG done, by ED staff, reviewed by Adeline Hernandez MD. rr5 22:00 Patient maintains SpO2 saturation greater than 95% on room air. rr5 22:05 Inserted saline lock: 20 gauge in left forearm, using aseptic technique. Blood rr5 collected. 22:12 Addison Martinez, RN is Primary Nurse. rr5 22:13 XRAY Chest (1 view) In Process Unspecified. EDMS 22:16 Triage completed. rr5 23:45 No provider procedures requiring assistance completed. IV discontinued, intact, rr5 bleeding controlled, No redness/swelling at site. Pressure dressing applied. Administered Medications: 22:32 Drug: Ativan 1 mg Route: IVP; Site: left antecubital; ea 23:46 Follow up: Response: No adverse reaction rr5 Outcome: 23:24 Discharge ordered by . ma2 23:46 Discharged to home ambulatory. rr5 23:46 Condition: stable 23:46 Discharge instructions given to patient, Instructed on discharge instructions, follow up and referral plans. medication usage, Demonstrated understanding of instructions, follow-up care, medications, Prescriptions given X 1. 23:46 Patient left the ED. rr5 Signatures: Dispatcher [employer] [facility] Nieves Bridges Elena, RN RN ea Alzahri, Mohammad, MD MD ma2 Roque, Raymond, RN RN rr5
[2020-07-24 05:03] VITALS: TEMP 98.4
[2020-07-24 05:07] VITALS: BP 121/75; O2SAT 99
--- NOTE | 2020-07-24 07:51 | RAD REPORT ---
EXAM DESCRIPTION: RAD - Chest Single View - 07/23/2020 10:13 pm CLINICAL HISTORY: CHEST PAIN COMPARISON: Portable December 2011 TECHNIQUE: AP portable chest image was obtained 07/23/2020 10:13 pm . FINDINGS: Lungs are clear. Heart and vasculature are normal. No measurable pleural effusion and no p neumothorax. No acute bony abnormality seen. Thoracolumbar scoliosis present. No acute aortic finding s suspected. IMPRESSION: No acute cardiopulmonary process. No worrisome interval change
== END 2020-07-23 23:46 | disposition home or self-care (01) ==
LOC: ER 21:47
DX: R07.1 Chest pain on breathing (principal); G35 Multiple sclerosis
CPT/HCPCS: 36415; 71045; 80048; 80076; 83735; 83880; 84484; 85025; 85610; 93005; 96374; 99285

== ENCOUNTER 2023-02-10 12:10 | Emergency (ER) | payer BC ==
--- OUTSIDE RECORDS SUMMARY | 2023-02-10 12:37 | XMS REPORT | Continuity of Care Document ---
:1985 Author Organization [facility] t Address [address] [facility] [facility]. [address] [place] [address] Care Team Providers Name Role Phone No , Pcp Primary Care Physician Unavailable PAYAM BALDERAS Attending Clinician Unavailable ANNA PETERSON Attending Clinician Unavailable Anna Peterson MD Attending Clinician Doctor Unassigned, [place] Attending Clinician Unavailable Janelle Carrion MA Attending Clinician Unavailable Payers Payer Name Policy Type Policy Number Effective Date Expiration Date S ource [place] [id number] 2020 2020 00:00:0 0 OUT OF STATE 00:00:00 [id number] 2020 00:00:00 Problems Condition Condition Condition Status Onset Resolution Last Treating Co mments Source Name Details Category Date Date Treatment Clinician Date Surveillan Surveillan Disease Active U nivers ce of ce of [place] 00 Me [place]ical contracept contracept Br anch gladys pill gladys pill Multiple Multiple Disease Active Unive rs sclerosis sclerosis 01-10 ity of 00:00: [place] 00 Medical Branch Overweight Overweight Disease Active Overview : Univers -19 Formattin ity of 00:00: g of this [place] 00 note Medical might be Branch different from the original. 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 of 0-15 ity of uncertain uncertain 00:00: Kimber jamil behavior behavior 00 Medica l of skin of skin Branch Other Other Disease Active 2011-08 Univers seborrheic seborrheic 0-15 it y of dermatitis dermatitis [place] No known No known Disease [place] active active Health problems problems Allergies, Adverse Reactions, Alerts Allergy Allergy Status Severity Reaction(s) Onset Inactive Treating Comm ents Source Name Type Date Date Clinician NO KNOWN Drug Active Univers ALLERGIE Class ity of S [facility] Social History Social Habit Start Date Stop Date Quantity Comments Source History SDOH University o f Alcohol Binge [place] Medic al Branch History of Passive smoker University of tobacco use [facility] History SDOH University o f Alcohol Frequency [place] M edical Branch History SDOH University o f Alcohol Std [place] Medical Drinks Branch Exposure to 2022-11-04 2022-11-14 Not sure [facility] SARS-CoV-2 00:00:00 10:00:00 (event) Tobacco use and 2022-11-14 2022-11-14 Smokeless tobacco [facility] exposure 00:00:00 00:00:00 non-user Alcohol intake 2022-11-14 2022-11-14 Lifetime [facility] 00:00:00 00:00:00 non-drinker (finding) Alcohol Comment 2022-04-19 2022-04-19 socially Universit y of 00:00:00 00:00:00 [facility] Sex Assigned At [birth year] [facility] 00:00:00 00:00:00 Smoking Status Start Date Stop Date Source Tobacco smoking consumption unknown [facility] Never smoked tobacco [facility] Medications Ordered Filled Start Stop Current Ordering Indication Dosage Frequency Signature Comments Components Source Medication Medication Date Date Medication? Clinician (SIG) Name Name FLUoxetine 2022- No 40mg QD Take 40 mg UT (PROzac) 40 11-14 by mouth 1 H ealth MG capsule 10:19: 00:00 (one) time 03 :00 each day. FLUoxetine 2023- Yes [id number] 40mg QD Take 1 UT (PROzac) 40 11-14 capsule Heal th MG capsule 00:00: 04:59 (40 mg 00 :00 total) by mouth 1 (one) time each day. FLUoxetine 0 Yes 40mg QD Take 40 mg U T (PROzac) 40 9-22 by mouth 1 He alth MG capsule 10:14: (one) time 59 each day. glatiramer 0 Yes 40mg inject 40 Un saravanan (COPAXONE) 8-26 mg under ity o f 20 mg/mL 09:32[place] injection [place] ascorbic 0 Yes Take by Univer s acid 8-26 mouth. ity of (VITAMIN C 09:32: [place] ORAL) [address] [place] [address] Branch mecobalamin Yes Take by Uni vers (B12 ACTIVE 8-26 mouth. ity of ORAL) 09:32: [address] Branch calcium 0 Yes Take by Univers carbonate/v 8-26 mouth. ity of itamin D3 09:32: [place] (VITAMIN 33 Medical D-3 ORAL) [place] glatiramer Yes 40mg inject 40 Un saravanan (COPAXONE) 8-26 mg under ity o f 20 mg/mL 09:32: [place] injection [place] ascorbic 0 Yes Take by Univer s acid 8-26 mouth. ity of (VITAMIN C 09:32: [place] ORAL) [address] [place] [address] Branch mecobalamin 0 Yes Take by Uni vers (B12 ACTIVE 8-26 mouth. ity of ORAL) 09:32: [address] Branch calcium 0 Yes Take by Univers carbonate/v 8-26 mouth. ity of itamin D3 09:32: [place] (VITAMIN 33 Medical D-3 ORAL) Branch norgestimat 0 Yes [id number] 1{tbl} Take 1 Univers e-ethinyl 8-26 tablet by ity o f estradioL 00:00: [place] (ORTHO 00 the Medical TRI-CYCLEN morning. Branc h LO, 28,) 0.18/0.215/ 0.25 mg-25 mcg tablet norgestimat 0 Yes [id number] 1{tbl} Take 1 Univers e-ethinyl 8-26 tablet by ity o f estradioL 00:00: [place] ([place]TH[place] 00 the Medical TRI-CYCLEN morning. Branc h LO, 28,) 0.18/0.215/ 0.25 mg-25 mcg tablet norgestimat 2021- No [id number] 1{tbl} Take 1 Univers e-ethinyl 04-16 tablet by ity of estradioL 00:00: 00:00 mouth in [place] (ORTHO 00 :00 the Medical TRI-CYCLEN morning. Branc h LO, 28,) 0.18/0.215/ 0.25 mg-25 mcg tablet KESIMPTA Yes Univers PEN 20 8-09 ity of mg/0.4 mL 00:00: [place] PnIj [address] [place] [address] Branch KESIMPTA Yes Univers PEN 20 8-09 ity of mg/0.4 mL 00:00: [address] Branch Ofatumumab 2022- No [id number] 20mg Q30D Inject 20 UT (Kesimpta) 7- 07-07 mg under Heal th 20 MG/0.4ML 00:00: 04:59 the skin solution 00 :00 every 30 auto-inject (thirty) or days. Ofatumumab 2022- No [id number] .4mL Q28D Inject 0.4 UT (Kesimpta) 7- 07-07 mL under Heal th 20 MG/0.4ML 00:00: 04:59 the skin solution 00 :00 every 28 auto-inject (twenty-ei or ght) days. Ofatumumab 2022- No [id number] 20mg Q30D Inject 20 UT (Kesimpta) 7- 07-07 mg under Heal th 20 MG/0.4ML 00:00: 04:59 the skin solution 00 :00 every 30 auto-inject (thirty) or days. Ofatumumab 2022- No [id number] 20mg Q30D Inject 20 UT (Kesimpta) 7- 07-07 mg under Heal th 20 MG/0.4ML 00:00: 04:59 the skin solution 00 :00 every 30 auto-inject (thirty) or days. Ofatumumab 2022- No [id number] .4mL Q28D Inject 0.4 UT (Kesimpta) 7- 07-07 mL under Heal th 20 MG/0.4ML 00:00: 04:59 the skin solution 00 :00 every 28 auto-inject (twenty-ei or ght) days. FLUoxetine Yes 40mg QD Take 40 mg U T (PROzac) 40 4-21 by mouth 1 He alth MG capsule 10:17: (one) time 33 each day. Copaxone 40 2021- No [id number] 40mg Inject 40 UT MG/ML 2-25 07-06 mg under Health solution 00:00: 00:00 the skin 3 prefilled 00 :00 (three) syringe times a week. Tri-Lo-Leslie Yes 1{tbl} QD Take 1 UT 0.18/0.215/ 1-24 tablet by [facility] 0.25 MG-25 00:00: mouth 1 MCG tablet 00 (one) time each day. Tri-Lo-Leslie Yes 1{tbl} QD Take 1 UT 0.18/0.215/ 1-24 tablet by [facility] 0.25 MG-25 00:00: mouth 1 MCG tablet 00 (one) time each day. Tri-Lo-Leslie Yes 1{tbl} QD Take 1 UT 0.18/0.215/ 1-24 tablet by [facility] 0.25 MG-25 00:00: mouth 1 MCG tablet 00 (one) time each day. FLUoxetine Yes 40mg Take 40 mg U nivers (PROZAC) 40 8-20 by mouth ity of mg capsule 14:36: daily. [address] FLUoxetine Yes 40mg Take 40 mg U nivers (PROZAC) 40 8-20 by mouth ity of mg capsule 14:36: daily. [address] norgestimat 2021- No [id number] 1{tbl} Take 1 Univers e-ethinyl 8-20 08-23 tablet by ity of estradioL 00:00: 00:00 mouth [place] (ORTHO 00 :00 daily. [facility] LO, 28,) 0.18/0.215/ 0.25 mg-25 mcg tablet Immunizations Ordered Filled Immunization Date Status Comments Sourc e Immunization Name Name SARS-COV-2 COVID-19 2021-04-13 Completed Unive rsity of PFIZER VACCINE 00:00:00 [facility] SARS-COV-2 COVID-19 2021-04-13 Completed Unive rsity of PFIZER VACCINE 00:00:00 [facility] SARS-COV-2 COVID-19 2021-03-15 Completed Unive rsity of PFIZER VACCINE 00:00:00 [facility] SARS-COV-2 COVID-19 2021-03-15 Completed Unive rsity of PFIZER VACCINE 00:00:00 [facility] PPD (TB) 2015-04-10 Completed University of 00:00:00 [facility] PPD (TB) 2015-04-10 Completed University of 00:00:00 [facility] PPD (TB) 2014-02-18 Completed University of 00:00:00 [facility] PPD (TB) 2014-02-18 Completed University of 00:00:00 [facility] TDAP 2013-12-29 Completed University of 00:00:00 [facility] TDAP 2013-12-29 Completed University of 00:00:00 [facility] Rubella 2007-01-28 Completed University of 00:00:00 [facility] Rubella 2007-01-28 Completed University of 00:00:00 [facility] Td 2002-08-25 Completed University of 00:00:00 [facility] Td 2002-08-25 Completed University of 00:00:00 [facility] Vital Signs Vital Name Observation Time Observation Value Comments Source Systolic blood 2022-11-14 15:09:00 122 mm[Hg] [facility] Diastolic blood 2022-11-14 15:09:00 86 mm[Hg] [facility] pressure Heart rate 2022-11-14 15:09:00 74 /[facility] temperature 2022-11-14 15:09:00 36.61 [facility] Respiratory rate 2022-11-14 15:09:00 13 /min [facility] Body height 2022-11-14 15:09:00 165.1 cm [facility] Body weight 2022-11-14 15:09:00 70.308 kg [facility] BMI 2022-11-14 15:09:00 25.79 kg/m2 [facility] Oxygen saturation in 2022-11-14 15:09:00 98 /min [facility] Arterial blood by Pulse oximetry Systolic blood 2022-05-16 15:15:00 117 mm[Hg] [facility] pressure Diastolic blood 2022-05-16 15:15:00 78 mm[Hg] [facility] pressure Heart rate 2022-05-16 15:15:00 72 /min [facility] Body temperature 2022-05-16 15:15:00 36.56 [facility] Respiratory rate 2022-05-16 15:15:00 15 /min [facility] Body height 2022-05-16 15:15:00 167.6 cm [facility] Body weight 2022-05-16 15:15:00 70.761 kg [facility] BMI 2022-05-16 15:15:00 25.18 kg/m2 [facility] Oxygen saturation in 2022-05-16 15:15:00 97 /min [facility] Arterial blood by Pulse oximetry Systolic blood 2022-04-19 14:31:00 118 mm[Hg] Univer sity of [facility] Diastolic blood 2022-04-19 14:31:00 73 mm[Hg] Unive rsity [facility] Heart rate 2022-04-19 14:31:00 87 /min [facility] Body temperature 2022-04-19 14:31:00 36.83 [facility] [facility] 2022-04-19 14:31:00 71.85 kg [facility] BMI 2022-04-19 14:31:00 26.36 kg/m2 [facility] Procedures Procedure Date / Time Performing Clinician Source Performed CONSENT FOR 2022-04-19 05:01:00 Doctor Unassigned, No Univer [facility] CONTRACEPTION Name [facility] POCT TEST 2022-04-19 00:00:00 Anna Peterson [facility] Encounters Start End Encounter Admission Attending Care Care Encounter Source Date/Time Date/Time Type Type Clinicians Facility Department ID 2023-01-08 Outpatient ED [facility] [id number] [place] 13:53:30 [id number] [facility] 2023-01-07 Outpatient ED [facility] [id number] [place] 06:48:29 [id number] [facility] 2022-11-20 Outpatient ED [facility] [id number] [place] 15:48:19 [id number] [facility] 2022-11-14 Outpatient ED [facility] [id number] [place] 10:02:40 [id number] [facility] 2022-11-05 Outpatient ED [facility] [id number] [place] 12:17:53 [id number] [facility] 2021-09-21 Outpatient SHERRIE ED [facility] [id number] [place] 15:12:04 [facility] 2021-03-06 Outpatient ED [facility] [id number] [place] 13:20:57 [facility] 2021-03-06 Outpatient ED [facility] [id number] [place] 13:20:57 [facility] 2023-05-22 2023-05-22 Outpatient SHERRIE ED [facility] [id number] [place] 10:00:00 10:00:00 [facility] 2023-01-09 2023-01-09 Outpatient ED [facility] [id number] [place] 14:00:00 14:00:00 [facility] 2022-11-14 2022-11-14 Office MIHAI Balderas 6410 [id number] [place] 10:00:00 10:59:02 Visit Payam MENDOZA [id number] Health [id number] 2022-05-16 2022-05-16 Office MIHAI Balderas 6410 [id number] [place] 10:00:00 11:19:59 Visit Payam MENDOZA [id number] Health [id number] 2022-04-19 2022-04-19 Outpatient ANNA STEPHENS [facility] [id number] [facility] 09:30:00 10:05:41 ity of [facility] 2022-04-19 2022-04-19 Office Anna Peterson [facility] [id number] [facility] 09:30:00 10:05:41 Visit [place] [id number] it y of WOMEN'S [id number] [facility] [id number] [address] 2022-04-19 2022-04-19 Outpatient R ANNA PETERSON [facility] [id number] Univers 09:30:00 10:05:41 ity of [facility] 2022-04-19 2022-04-19 Outpatient R ANNA PETERSON [facility] [id number] Univers 09:30:00 09:30:[address] [facility] 2022-04-19 2022-04-19 Outpatient R [facility] [id number] Univers 09:30:00 09:30:[address] [facility] 2022-04-19 2022-04-19 Orders Doctor PAYAM [id number] Univers 00:00:00 00:00:00 Only Unassigned, [place] [id number] ity of [place] [facility] [id number] [place] [id number] [facility] [address] [place] 2022-04-12 2022-04-12 Pre Visit SUREKHA Carrion [id number] Univers 00:00:00 00:00:00 Outreach Janelle MEMBRENO [id number] i [place] [id number] [facility] 086 [place] 2022-04-10 2022-04-10 Refill [facility] [id number] Univers 00:00:00 00:00:00 Cam KAI [id number] i ty of [place]2.7.2.686 [place] [id number] Ia dical [address] 2022-02-11 2022-02-11 Telephone MIHAI Balderas 6410 [id number] [place] 00:00:00 00:00:00 Payam MENDOZA [id number] Health [id number] [id number] 2021-12-13 2021-12-13 Office MIHAI Balderas 6410 [id number] [place] 10:00:00 11:04:02 Visit Payam MENDOZA [id number] Health [id number] 2021-10-05 2021-10-05 Telephone MIHAI Balderas 6410 [id number] [place] 00:00:00 00:00:00 Payam MENDOZA [id number] Health [id number] 2021-09-11 2021-09-11 Orders Doctor PAYAM [id number] [facility] 00:00:00 00:00:00 Only Unassigned, [place] [id number] ity of [place] [facility] [id number] [place] [id number] [address] 2021-04-13 2021-04-13 Outpatient ANNA STEPHENS [facility] [id number] Univers 14:00:00 14:00:00 [facility] Results Test Description Test Time Test Comments Results Result Comments Source POCT TEST 2022-04-19 14:37:00 Test Item Value Reference Range Interpretation Comme nts POCT PREG (test code = 1605) Negative On board controls acceptable with C Line (test code = 3574) Yes POCT PREG LOT # (test code = 3575) POCT PREG TEST DATE (test code = 3576) [facility]
[2023-02-10] MEDS ORDERED: NA CHLORIDE 0.9% 1,000 ML ONE (13:16)
[2023-02-10] MEDS ORDERED: MAGNES/ALUMIN/SIMET 30ML UCUP ONE (13:16)
[2023-02-10 13:21] LABS: Absolute Lymphocytes (CBC) 1.5 K/uL (0.7-4.9); Hematocrit 35.8 % (36.0-45.0); Lymphocytes % 18.1 % (15.3-44.8); MCV 81.6 fL (80-100); MPV 7.9 fL (7.6-11.3); RBC Red Blood Cell Count 4.38 M/uL (3.86-4.86)
[2023-02-10 13:26] LABS: Specific Gravity > 1.030 (1.005-1.030)
[2023-02-10 13:39] LABS: Albumin 3.2 g/dL (3.4-5.0); Bilirubin Total 0.3 mg/dL (0.2-1.0); Potassium 3.8 mEq/L (3.5-5.1)
[2023-02-10 13:49] LABS: Specific Gravity > 1.030 (1.005-1.030); Urine Bacteria >50 /HPF (<20); Urine Bilirubin NEGATIVE (Negative); Urine Blood 1+ (Negative); Urine Clarity Turbid (Clear); Urine Color Yellow (Yellow); Urine Glucose NEGATIVE (Negative); Urine Mucus 4+ /HPF (None Seen); Urine Protein 1+ (Negative); Urine Urobilinogen Normal (Normal)
--- NOTE | 2023-02-10 14:36 | RAD REPORT ---
EXAM DESCRIPTION: CT - Abdomen Pelvis W Contrast - 02/10/2023 1:50 pm CLINICAL HISTORY: ABD PAIN COMPARISON: No comparisons TECHNIQUE: Thin cut axial CT imaging of the abdomen and pelvis was performed following intravenous a dministration of 95 mL Isovue 300. Multiplanar reformats were generated and reviewed. All CT scans are performed using dose optimization technique as appropriate and may include automated exposure control or mA/KV adjustment according to patient size. FINDINGS: Multifocal subpleural airspace opacities, could reflect multifocal pneumonitis. Ill-defined focus of hypoattenuation in the peripheral right liver lobe, measuring 9 millimeter, not well characterized on this single-phase CT. Possibilities include a small cyst or hemangioma, among o thers. Small region of subcapsular hypoattenuation, geographic in morphology, along the falciform fis sure, suggestive of focal fatty infiltration. Adrenal glands, spleen, and pancreas show no suspicious findings. Motion artifact at the level of the liver hilum limits evaluation. Gallbladder and biliary tree are also without suspicious finding. Symmetric renal function is seen with no hydronephrosis or suspicious renal mass. No dilated bowel loops. Segmental wall thickening with mild adjacent fat stranding involving the asce nding colon and terminal ileum. Less pronounced apparent wall prominence along the proximal to mid tr ansverse colon could relate to a similar process or to nondistention. No free air, free fluid or infl ammatory stranding. No hernia, mass or bulky lymphadenopathy. The urinary bladder is suboptimally dis tended which limits evaluation, without significant finding. No suspicious bony findings. IMPRESSION: Inflammatory changes involving the terminal ileum and ascending colon, could relate to i nfectious or inflammatory enterocolitis. Ill-defined focus of hypoattenuation in the peripheral right liver lobe, measuring 9 millimeter, not well characterized on this CT. A follow-up ultrasound in 1-2 months may be helpful to assess cystic/s olid nature, and stability. Ultimately, MRI would provide improved tissue sensitivity for additional characterization. Multifocal subpleural bibasilar lung airspace opacities, could reflect multifocal pneumonitis. Other incidental findings as above. The findings were communicated to Heriberto Ward on 02/10/2023 at 14:26 hours.
--- NOTE | 2023-02-10 15:07 | ER ---
Nurse's Notes [facility] Name: Brandy Mathis Age: 37 yrs Sex: Female : 1985 Arrival Date: 02/10/2023 Time: 12:10 Bed 18 Private MD: Diagnosis: Inflammatory bowel, abdominal pain, UTI Presentation: 02/10 12:22 Chief complaint: Patient states: midsternal/epigastric pain that began Friday, pt aa5 states "it hurts even when I swallow my own saliva". Pt denies nausea/vomiting. Coronavirus screen: At this time, the client does not indicate any symptoms associated with coronavirus-19. Ebola Screen: Patient denies travel to an Ebola-affected area in the 21 days before illness onset. Initial Sepsis Screen: Does the patient meet any 2 criteria? No. Patient's initial sepsis screen is negative. Does the patient have a suspected source of infection? No. Patient's initial sepsis screen is negative. Risk Assessment: Do you want to hurt yourself or someone else? Patient reports no desire to harm self or others. Onset of symptoms was 2022. 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 - Social history:: Smoking status: Patient denies any tobacco usage or history of. Screenin:00 [facility] ED Fall Risk Assessment (Adult) History of falling in the last 3 months, nj1 including since admission No falls in past 3 months (0 pts) Confusion or Disorientation No (0 pts) Intoxicated or Sedated No (0 pts) Impaired Gait No (0 pts) Mobility Assist Device Used Yes (1 pt) Altered Elimination No (0 pt) Score/Fall Risk Level 0 - 2 = Low Risk Oriented to surroundings, Maintained a safe environment, Hourly rounding (assess needs \\T\\ fall precautionary measures) done. 13:00 Abuse screen: Denies threats or abuse. Denies injuries from another. Nutritional nj1 screening: No deficits noted. Tuberculosis screening: No symptoms or risk factors identified. Assessment: 13:00 General: Appears in no apparent distress. comfortable, Behavior is calm, cooperative, nj1 appropriate for age. Pain: Complains of pain in Epigastric Pain does not radiate. Pain currently is 8 out of 10 on a pain scale. Pain began 2-3 days ago. 13:00 Pain: Aggravated by eating, drinking. Neuro: Level of Consciousness is awake, alert, nj1 obeys commands. Cardiovascular: Patient's skin is warm and dry. Respiratory: Airway is patent Respiratory effort is even, unlabored. GI: Reports epigastric pain. 14:56 Reassessment: Patient appears in no apparent distress at this time. Patient and/or nj1 family updated on plan of care and expected duration. Pain level reassessed. Patient is alert, oriented x 3, equal unlabored respirations, skin warm/dry/pink. General:. 16:04 Reassessment: Patient appears in no apparent distress at this time. Patient and/or nj1 family updated on plan of care and expected duration. Pain level reassessed. Patient is alert, oriented x 3, equal unlabored respirations, skin warm/dry/pink. 17:55 Reassessment: Patient appears in no apparent distress at this time. Patient and/or nj1 family updated on plan of care and expected duration. Pain level reassessed. Patient is alert, oriented x 3, equal unlabored respirations, skin warm/dry/pink. Patient denies pain at this time. Patient states feeling better. Vital Signs: 12:22 BP 113 / 76; Pulse 80; Resp 16 S; Temp 98.1(TE); Pulse Ox 99% on R/A; aa5 14:56 BP 103 / 54; Pulse 79; Resp 16; Pulse Ox 97% ; Pain 7/10; nj1 16:03 BP 111 / 67; Pulse 81; Resp 16; Pulse Ox 96% ; Pain 7/10; nj1 17:55 BP 116 / 67; Pulse 81; Resp 16; Pulse Ox 100% ; Pain 0/10; nj1 14:56 Pain Scale: Adult nj1 16:03 Pain Scale: Adult nj1 17:55 Pain Scale: Adult nc1 ED Course: 12:19 Patient arrived in ED. jl7 12:21 Arm band placed on. aa5 12:22 Heriberto Ward MD is Attending Physician. sp3 12:25 Triage completed. aa5 12:52 Promise Mcmahon, JANENE is Primary Nurse. nj1 13:00 Patient has correct armband on for positive identification. Bed in low position. Call nj1 light in reach. 13:00 Inserted saline lock: 22 gauge in right antecubital area, using aseptic technique. nj1 Blood collected. 13:24 Pulse ox on. NIBP on. nj1 13:24 Patient maintains SpO2 saturation greater than 95% on room air. nj1 13:52 CT Abd/Pelvis - IV Contrast Only In Process Unspecified. EDMS 14:55 Thermoregulation: warm blanket given to patient. nj1 15:06 Dustin Kennedy MD is Referral Physician. sp3 17:55 IV discontinued, intact, bleeding controlled. nj1 18:02 No provider procedures requiring assistance completed. nj1 Administered Medications: 13:10 Drug: NS 0.9% IV 1000 ml Route: IV; Rate: 1 bolus; Site: right antecubital; nj1 15:20 Follow up: Response: No adverse reaction; IV Status: Completed infusion; IV Intake: nj1 1000ml 13:10 Drug: Alum-Mag Hydroxide-Simeth PO Suspension (200 mg-200 mg-20 mg/5 mL) 30 ml Route: nj1 PO; 14:10 Follow up: Response: No adverse reaction nj1 13:21 Not Given (Lidocaine on backorderr): GI Cocktail without - (Maalox PO nj1 Suspension 30 ml, Lidocaine Mucous Membrane Liquid 2 % 15 ml) PO once 15:20 Drug: metroNIDAZOLE IVPB 500 mg Volume: 100 ml; Route: IVPB; Rate: 200 ml/hr; Infused nj1 Over: 30 mins; Site: right antecubital; 16:00 Follow up: IV Status: Completed infusion; IV Intake: 100ml nj1 16:00 Drug: Ciprofloxacin IVPB 400 mg Volume: 200 ml; Route: IVPB; Infused Over: 60 mins; nj1 Site: right antecubital; 17:55 Follow up: Response: No adverse reaction; IV Status: Completed infusion; IV Intake: nj1 200ml Medication: 18:02 VIS not applicable for this client. nj1 Intake: 15:20 IV: 1000ml; Total: 1000ml. nj1 16:00 IV: 100ml; Total: 1100ml. nj1 17:55 IV: 200ml; Total: 1300ml. nj1 Outcome: 15:07 Discharge ordered by . neil 17:55 Discharged to home ambulatory. nj1 17:55 Condition: stable 17:55 Discharge instructions given to patient, Instructed on discharge instructions, follow up and referral plans. medication usage, Demonstrated understanding of instructions, follow-up care, medications, Prescriptions given X 2. 18:03 Patient left the ED. nj1 Signatures: Dispatcher [employer] EDMS Dixie Kahn RN RN aa5 Mario Simmons RN RN jl7 Heriberto Ward MD MD sp3 Promise Mcmahon RN RN nj1
--- NOTE | 2023-02-10 15:07 | EDPHYS ---
Physician Documentation [facility] Name: Brandy Mathis Age: 37 yrs Sex: Female : 1985 Arrival Date: 02/10/2023 Time: 12:10 Bed 18 Private MD: ED Physician Heriberto Ward HPI: 02/10 12:50 This 37 yrs old Female presents to ER via Ambulatory with complaints of sp3 Epigastric pain. 12:50 37-year-old female with history of multiple sclerosis now presents with chief complaint sp3 epigastric pain Going on for 2 to 3 days that radiates superiorly particularly when she swallows or eats. No prior history of similar symptoms and no GI history at all. She denies lower abdominal pain, vomiting or diarrhea, fever, headache, neck pain, chest pain, shortness of breath, prolonged immobilization, long travel, known sick contacts, potential bad food, prior DVT or PE, prior abdominal surgeries, or any other concerns on ROS at this time.. 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 - Social history:: Smoking status: Patient denies any tobacco usage or history of. ROS: 12:52 Constitutional: Negative for fever, chills, and weight loss, Eyes: Negative for injury, sp3 pain, redness, and discharge, ENT: Negative for injury, pain, and discharge, Neck: Negative for injury, pain, and swelling, Cardiovascular: Negative for chest pain, palpitations, and edema, Respiratory: Negative for shortness of breath, cough, wheezing, and pleuritic chest pain, Back: Negative for injury and pain, MS/Extremity: Negative for injury and deformity, Skin: Negative for injury, rash, and discoloration, Neuro: Negative for headache, weakness, numbness, tingling, and seizure, Psych: Negative for depression, anxiety, suicide ideation, homicidal ideation, and hallucinations, Allergy/Immunology: Negative for hives, rash, and allergies, Endocrine: Negative for neck swelling, polydipsia, polyuria, polyphagia, and marked weight changes. 12:52 All other systems are negative. Exam: 12:52 Constitutional: This is a well developed, well nourished patient who is awake, alert, sp3 and in no acute distress. Head/Face: Normocephalic, atraumatic. Eyes: Pupils equal round and reactive to light, extra-ocular motions intact. Lids and lashes normal. Conjunctiva and sclera are non-icteric and not injected. Cornea within normal limits. Periorbital areas with no swelling, redness, or edema. Neck: Trachea midline, no thyromegaly or masses palpated, and no cervical lymphadenopathy. Supple, full range of motion without nuchal rigidity, or vertebral point tenderness. No Meningismus. Chest/axilla: Normal chest wall appearance and motion. Nontender with no deformity. No lesions are appreciated. Cardiovascular: Regular rate and rhythm with a normal S1 and S2. No gallops, murmurs, or rubs. Normal PMI, no JVD. No pulse deficits. Respiratory: Lungs have equal breath sounds bilaterally, clear to auscultation and percussion. No rales, rhonchi or wheezes noted. No increased work of breathing, no retractions or nasal flaring. Back: No spinal tenderness. No costovertebral tenderness. Full range of motion. Skin: Warm, dry with normal turgor. Normal color with no rashes, no lesions, and no evidence of cellulitis. MS/ Extremity: Pulses equal, no cyanosis. Neurovascular intact. Full, normal range of motion. Neuro: Awake and alert, GCS 15, oriented to person, place, time, and situation. Cranial nerves II-XII grossly intact. Motor strength 5/5 in all extremities. Sensory grossly intact. Cerebellar exam normal. Normal gait. Psych: Awake, alert, with orientation to person, place and time. Behavior, mood, and affect are within normal limits. 12:52 Abdomen/GI: Patient with epigastric pain to palpation sharp in nature without peritoneal signs including rebound or guarding. No pain on the lower quadrants. No pain over McBurney's point.. Vital Signs: 12:22 BP 113 / 76; Pulse 80; Resp 16 S; Temp 98.1(TE); Pulse Ox 99% on R/A; aa5 14:56 BP 103 / 54; Pulse 79; Resp 16; Pulse Ox 97% ; Pain 7/10; nj1 16:03 BP 111 / 67; Pulse 81; Resp 16; Pulse Ox 96% ; Pain 7/10; nj1 17:55 BP 116 / 67; Pulse 81; Resp 16; Pulse Ox 100% ; Pain 0/10; nj1 14:56 Pain Scale: Adult nj1 16:03 Pain Scale: Adult nj1 17:55 Pain Scale: Adult nj1 MDM: 12:30 Patient medically screened. sp3 12:53 Data reviewed: vital signs, nurses notes, old medical records, lab test result(s), sp3 radiologic studies. ED course: 37-year-old female with epigastric pain. Differential diagnosis includes gastritis, peptic ulcer disease, pancreatitis, biliary pathology including cholelithiasis and cholecystitis, functional abdominal pain, obstruction or ileus, among others. 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 Also not concerned about aortic pathology including dissection and aneurysm. Will obtain laboratory values, CT scan of the abdomen and pelvis, urine analysis and administer GI cocktail p.o. as both diagnostic and therapeutic. Further disposition based on patient work-up and course.. 15:05 ED course: CT demonstrates inflammatory changes in the terminal ileum and proximal sp3 ascending colon. Also mild UTI on urinalysis. No inflammation on CBC and remainder of chemistries are within normal limits. We will treat with Cipro and Flagyl IV and discharge patient home on said medications. Follow-up with GI for endoscopy and colonoscopy for further elucidation of exact pathology. All questions answered and patient understands need for follow-up.. 02/10 12:48 Order name: CBC with Diff; Complete Time: 14:50 3 02/10 12:48 Order name: CMP; Complete Time: 14:50 3 02/10 12:48 Order name: Lipase; Complete Time: 14:50 3 02/10 12:48 Order name: Test, Urine; Complete Time: 13:33 sp3 02/10 12:48 Order name: Urinalysis w/ reflexes; Complete Time: 14:50 3 02/10 12:48 Order name: CT Abd/Pelvis - IV Contrast Only; Complete Time: 14:50 3 02/10 12:48 Order name: IV Saline Lock; Complete Time: 13:01 sp3 02/10 12:48 Order name: Labs collected and sent; Complete Time: 13:01 sp3 Administered Medications: 13:10 Drug: NS 0.9% IV 1000 ml Route: IV; Rate: 1 bolus; Site: right antecubital; nj1 15:20 Follow up: Response: No adverse reaction; IV Status: Completed infusion; IV Intake: nj1 1000ml 13:10 Drug: Alum-Mag Hydroxide-Simeth PO Suspension (200 mg-200 mg-20 mg/5 mL) 30 ml Route: nj1 PO; 14:10 Follow up: Response: No adverse reaction nj1 13:21 Not Given (Lidocaine on backorderr): GI Cocktail without - (Maalox PO nj1 Suspension 30 ml, Lidocaine Mucous Membrane Liquid 2 % 15 ml) PO once 15:20 Drug: metroNIDAZOLE IVPB 500 mg Volume: 100 ml; Route: IVPB; Rate: 200 ml/hr; Infused nj1 Over: 30 mins; Site: right antecubital; 16:00 Follow up: IV Status: Completed infusion; IV Intake: 100ml nj1 16:00 Drug: Ciprofloxacin IVPB 400 mg Volume: 200 ml; Route: IVPB; Infused Over: 60 mins; nj1 Site: right antecubital; 17:55 Follow up: Response: No adverse reaction; IV Status: Completed infusion; IV Intake: nj1 200ml Disposition Summary: 02/10/23 15:07 Discharge Ordered Location: Home sp3 Condition: Stable sp3 Diagnosis - Inflammatory bowel, abdominal pain, UTI sp3 Followup: sp3 - With: Dustin Kennedy MD - When: Upon discharge from the Emergency Department - Reason: Recheck today's complaints Discharge Instructions: - Discharge Summary Sheet sp3 - Colitis sp3 Forms: - Medication Reconciliation Form sp3 - Thank You Letter sp3 - Antibiotic Education sp3 - Prescription Opioid Use sp3 Prescriptions: - Cipro 500 mg Oral Tablet - take 1 tablet by ORAL route every 12 hours for 10 days; 14 tablet; Refills: 0, sp3 Product Selection Permitted - Flagyl 500 mg Oral Tablet - take 1 tablet by ORAL route every 12 hours for 7 days; 14 tablet; Refills: 0, sp3 Product Selection Permitted Signatures: Dispatcher [employer] Dixie Cardona RN RN aa5 Heriberto Ward MD MD sp3 Promise Mcmahon, RN RN nj1
[2023-02-10] MEDS ORDERED: METRONIDAZOLE 500mg IVPB 500 MG/100 ML BAG IV ONE (15:16)
[2023-02-10] MEDS ORDERED: CIPROFLOXACIN 400mg IV 400 MG/200 ML BAG IV ONE (15:16)
[2023-02-10 18:12] VITALS: TEMP 98.1
[2023-02-10 18:16] VITALS: BP 116/67; O2SAT 100
== END 2023-02-10 18:03 | disposition home or self-care (01) ==
LOC: ER 12:10
DX: N39.0 Urinary tract infection, site not specified (principal); K58.9 Irritable bowel syndrome, unspecified
CPT/HCPCS: 96365; 96367; 96361; 85025; 81001; 36415; 81025; 83690; 80053; 74177; 99285; 96366; Q9967; J0744; J7030

== ENCOUNTER 2024-07-28 07:28 | Emergency (ER) | payer BC ==
--- OUTSIDE RECORDS SUMMARY | 2024-07-28 07:32 | XMS REPORT | Continuity of Care Document ---
Author Name Unknown Address [address] [place] [address] [facility] thconnect Address [address] [place] [address] Care Team Providers Care Instructional Technologist Name Role Phone Larry Casillas Primary Care Physician [phone] PAYAM WILSON Attending Clinician Unavailable ANNA PETERSON Attending Clinician Unavailable ANNA PETERSON Attending Clinician Unavailable Maurice Boogie Attending Clinician [phone] Unknown, Attending Attending Clinician Unavailab MAURICE Buckley Attending Clinician Unavailable Doctor Unassigned, [place] Altos Attending Clinician U HAMIDA Tinoco Attending Clinician Unavailable HAMIDA MAN Attending Clinician Unavailable Hamida Man MD Attending Clinician [phone] Anna Peterson MD Attending Clinician [phone] LACI PEREZ Attending Clinician Unavailable Doctor Unassigned, [place] Attending Clinician U Janelle Perez MA Attending Clinician Unavaildanika e Payers Payer Name Policy Type Policy Number Effective Date Expirati on Date Source [place] OUT OF [place] [id number] 2020 00:00:00 2020 00:00:00 Problems Condition Name Condition Details Condition Category Status Onset Date Resolution Date Last Treatment Date Treating Clinician Comments Source External hemorrhoid External hemorrhoid Disease Active 05-13 00:00: 00 [facility] Anal skin tag Anal skin tag Disease Active 05-13 00:00: 00 [facility] G35 - MULTIPLE SCLEROSIS G35 - MULTIPLE SCLEROSIS Active 11/21/2016 OPID Roel Diagnosis Active 11-21 00:01: 00 2017-01-05 15:55:00 Bebo William Surveillan ce of previously prescribed contracept gladys pill Surveillan ce of previously prescribed contracept gladys pill Disease Active 01-10 00:00: 00 [facility] Multiple sclerosis Multiple sclerosis Disease Active 01-10 00:00: 00 [facility] Overweight Overweight Disease Active 01-10 00:00: 00 Overview: Formattin g of this note might be different from the original. 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 OPID Roel Diagnosis Active 2024-03-15 10:04:00 Bebo William No known active problems No known active problems Disease [facility] Allergies, Adverse Reactions, Alerts Allergy Name Allergy Type Status Severity Reaction(s) Onset Date Inactive Date Treating Clinician Comments Source NO KNOWN ALLERGIE S Drug Class Active [facility] Social History Social Habit Start Date Stop Date Quantity Comments Source History SDOH Alcohol Binge [facility] Gender identity [facility] History of tobacco use Passive smoker [facility] History SDOH Alcohol Frequency [facility] History SDOH Alcohol Std Drinks [facility] Sexual orientation [facility] Alcoholic beverage intake 2024-03-11 00:00:00 2024-03-11 00:00:00 Lifetime non-drinker (finding) [facility] Alcohol intake 2023-05-22 00:00:00 2023-05-22 00:00:00 Lifetime non-drinker (finding) [facility] History of Social function 2023-05-22 00:00:00 2023-05-22 00:00:00 [facility] Exposure to SARS-CoV-2 (event) 2022-11-04 00:00:00 2022-11-14 10:00:00 Not sure [facility] Alcohol Comment 2022-04-19 00:00:00 2022-04-19 00:00:00 socially [facility] Tobacco use and exposure 2022-04-19 00:00:00 2022-04-19 00:00:00 Smokeless tobacco non-user [facility] Sex assigned at 1985 00:00:00 1985 00:00:00 [facility] Smoking Status Start Date Stop Date Source Tobacco smoking consumption unknown [facility] Never smoked tobacco [facility] Medications Ordered Medication Name Filled Medication Name Start Date Stop Date Current Medication? Ordering Clinician Indication Dosage Frequency Signature (SIG) Comments Components Source amoxicillin 500 mg tablet 2023-08 00:00: 00 08-06 05:59 :00 Yes [id number] 1000mg Take 2 tablets by mouth in the morning for 10 days. [facility] norgestimat e-ethinyl estradioL (ORTHO TRI-CYCLEN LO, 28,) 0.18/0.215/ 0.25 mg-25 mcg tablet 04-30 00:00: 00 Yes [id number] 1{tbl} Take 1 tablet by mouth in the morning. [facility] phenyleph-m in oil-petrola josee (PREPARATIO N H) 0.25-14-74. 9 % Oint 01-28 00:00: 00 Yes [id number] Apply to rectal area or by applicator into rectum, as needed, up to 4 times/day (eg, morning, night, after bowel movements) . [facility] apremilast (OTEZLA ORAL) 04-25 08:23: 04 Yes Take by mouth. [facility] FLUoxetine (PROZAC) 40 mg capsule 04-25 08:23: 03 04-25 00:00 :00 No 40mg Take 40 mg by mouth daily. [facility] glatiramer (COPAXONE) 20 mg/mL injection 04-25 08:22: 13 04-25 00:00 :00 No 40mg inject 40 mg under the skin. [facility] ascorbic acid (VITAMIN C ORAL) 04-25 08:22: 04 04-25 00:00 :00 No Take by mouth. [facility] calcium carbonate/v itamin D3 (VITAMIN D-3 ORAL) 04-25 08:22: 04-25 00:00 :00 No Take by mouth. [facility] mecobalamin (B12 ACTIVE ORAL) 04-25 08:21: 46 04-25 00:00 :00 No Take by mouth. [facility] norgestimat e-ethinyl estradioL (ORTHO TRI-CYCLEN LO, 28,) 0.18/0.215/ 0.25 mg-25 mcg tablet 04-25 00:00: 00 04-30 00:00 :00 No [id number] 1{tbl} Take 1 tablet by mouth in the morning. [facility] Ofatumumab (Kesimpta) 20 MG/0.4ML solution auto-inject or 03-10 00:00: 00 Yes [id number] INJECT 1 PEN UNDER THE SKIN EVERY MONTH [facility] FLUoxetine (PROzac) 40 MG capsule 11-14 10:19: 03 11-14 00:00 :00 No 40mg QD Take 40 mg by mouth 1 (one) time each day. [facility] FLUoxetine (PROzac) 40 MG capsule 11-14 00:00: 00 11-14 04:59 :00 No [id number] 40mg QD Take 1 capsule (40 mg total) by mouth 1 (one) time each day. [facility] FLUoxetine (PROzac) 40 MG capsule 05-16 10:14: 59 Yes 40mg QD Take 40 mg by mouth 1 (one) time each day. [facility] glatiramer (COPAXONE) 20 mg/mL injection 04-19 09:32: 33 Yes 40mg inject 40 mg under the skin. [facility] ascorbic acid (VITAMIN C ORAL) 04-19 09:32: 33 Yes Take by mouth. [facility] norgestimat e-ethinyl estradioL (ORTHO TRI-CYCLEN LO, ,) 0.18/0.215/ 0.25 mg-25 mcg tablet 04-19 00:00: 00 04-25 00:00 :00 No [id number] 1{tbl} Take 1 tablet by mouth in the morning. [facility] norgestimat e-ethinyl estradioL (ORTHO TRI-CYCLEN , ,) 0.18/0.215/ 0.25 mg-25 mcg tablet 04-16 00:00: 00 04-19 00:00 :00 No [id number] 1{tbl} Take 1 tablet by mouth in the morning. [facility] KESIMPTA PEN 20 mg/0.4 mL PnIj 04-02 00:00: 00 Yes [facility] Ofatumumab (Kesimpta) 20 MG/0.4ML solution auto-inject or 02-27 00:00: 00 02-28 04:59 :00 No [id number] 20mg Q30D Inject 20 mg under the skin every 30 (thirty) days. [facility] Ofatumumab (Kesimpta) 20 MG/0.4ML solution auto-inject or 02-27 00:00: 00 02-28 04:59 :00 No [id number] .4mL Q28D Inject 0.4 mL under the skin every 28 (twenty-ei ght) days. [facility] FLUoxetine (PROzac) 40 MG capsule 12-13 10:17: 33 Yes 40mg QD Take 40 mg by mouth 1 (one) time each day. [facility] Copaxone 40 MG/ML solution prefilled syringe 2-25 00:00: 00 02-27 00:00 :00 No [id number] 40mg Inject 40 mg under the skin 3 (three) times a week. [facility] Tri-Lo-Leslie 0.18/0.215/ 0.25 MG-25 MCG tablet 1-24 00:00: 00 Yes 1{tbl} QD Take 1 tablet by mouth 1 (one) time each day. [facility] FLUoxetine (PROZAC) 40 mg capsule 04-13 14:36: 21 Yes 40mg Take 40 mg by mouth daily. [facility] norgestimat e-ethinyl estradioL (ORTHO TRI-CYCLEN LO, 28,) 0.18/0.215/ 0.25 mg-25 mcg tablet 04-13 00:00: 00 04-16 00:00 :00 No [id number] 1{tbl} Take 1 tablet by mouth daily. [facility] Immunizations Ordered Immunization Name Filled Immunization Name Date Status Comments Source SARS-COV-2 COVID-19 PFIZER VACCINE 2021-04-13 00:00:00 Completed [facility] SARS-COV-2 COVID-19 PFIZER VACCINE 2021-04-13 00:00:00 Completed [facility] SARS-COV-2 COVID-19 PFIZER VACCINE 2021-04-13 00:00:00 Completed [facility] SARS-COV-2 COVID-19 PFIZER VACCINE 2021-04-13 00:00:00 Completed [facility] SARS-COV-2 COVID-19 PFIZER VACCINE 2021-04-13 00:00:00 Completed [facility] SARS-COV-2 COVID-19 PFIZER VACCINE 2021-03-15 00:00:00 Completed [facility] SARS-COV-2 COVID-19 PFIZER VACCINE 2021-03-15 00:00:00 Completed [facility] SARS-COV-2 COVID-19 PFIZER VACCINE 2021-03-15 00:00:00 Completed [facility] SARS-COV-2 COVID-19 PFIZER VACCINE 2021-03-15 00:00:00 Completed [facility] SARS-COV-2 COVID-19 PFIZER VACCINE 2021-03-15 00:00:00 Completed PPD (TB) 2015-04-10 00:00:00 Completed [facility] PPD (TB) 2015-04-10 00:00:00 Completed [facility] PPD (TB) 2015-04-10 00:00:00 Completed [facility] PPD (TB) 2015-04-10 00:00:00 Completed [facility] PPD (TB) 2015-04-10 00:00:00 Completed [facility] PPD (TB) 2014-02-18 00:00:00 Completed [facility] PPD (TB) 2014-02-18 00:00:00 Completed [facility] PPD (TB) 2014-02-18 00:00:00 Completed [facility] PPD (TB) 2014-02-18 00:00:00 Completed [facility] PPD (TB) 2014-02-18 00:00:00 Completed TDAP 2013-12-29 00:00:00 Completed [facility] TDAP 2013-12-29 00:00:00 Completed [facility] TDAP 2013-12-29 00:00:00 Completed [facility] TDAP 2013-12-29 00:00:00 Completed [facility] TDAP 2013-12-29 00:00:00 Completed [facility] Rubella 2007-01-28 00:00:00 Completed [facility] Rubella 2007-01-28 00:00:00 Completed [facility] Rubella 2007-01-28 00:00:00 Completed [facility] Rubella 2007-01-28 00:00:00 Completed [facility] Rubella 2007-01-28 00:00:00 Completed Td 2002-08-25 00:00:00 Completed [facility] Td 2002-08-25 00:00:00 Completed [facility] TD, NOS 2002-08-25 00:00:00 Completed [facility] TD, NOS 2002-08-25 00:00:00 Completed [facility] TD, NOS 2002-08-25 00:00:00 Completed TD, NOS Unknown Completed [facility] Rubella Unknown Completed [facility] TDAP Unknown Completed [facility] PPD (TB) Unknown Completed [facility] SARS-COV-2 COVID-19 PFIZER VACCINE Unknown Completed [facility] TD, NOS Unknown Completed [facility] Rubella Unknown Completed [facility] TDAP Unknown Completed [facility] PPD (TB) Unknown Completed [facility] SARS-COV-2 COVID-19 PFIZER VACCINE Unknown Completed [facility] TD, NOS Unknown Completed [facility] Rubella Unknown Completed [facility] TDAP Unknown Completed [facility] PPD (TB) Unknown Completed [facility] SARS-COV-2 COVID-19 PFIZER VACCINE Unknown Completed [facility] TD, NOS Unknown Completed [facility] Rubella Unknown Completed [facility] TDAP Unknown Completed [facility] PPD (TB) Unknown Completed [facility] SARS-COV-2 COVID-19 PFIZER VACCINE Unknown Completed [facility] Vital Signs Vital Name Observation Time Observation Value Comments S ource Systolic blood pressure 2024-07-26 18:00:00 115 mm[Hg] [facility] Diastolic blood pressure 2024-07-26 18:00:00 79 mm[Hg] [facility] hospital Heart rate 2024-07-26 18:00:00 94 /min [facility] Body temperature 2024-07-26 18:00:00 37.94 Meredith [facility] Body height 2024-07-26 18:00:00 167.6 cm [facility] Body weight 2024-07-26 18:00:00 69.673 kg [facility] BMI 2024-07-26 18:00:00 24.79 kg/m2 [facility] Oxygen saturation in Arterial blood by Pulse oximetry 2024-07-26 18:00:00 100 /min [facility] Systolic blood pressure 2024-05-13 14:48:00 120 mm[Hg] [facility] acute hospital Diastolic blood pressure 2024-05-13 14:48:00 76 mm[Hg] [facility] acute hospital Heart rate 2024-05-13 14:48:00 76 /min [facility] Body temperature 2024-05-13 14:48:00 36.78 Meredith [facility] Body height 2024-05-13 14:48:00 167.6 cm [facility] Body weight 2024-05-13 14:48:00 69.945 kg [facility] BMI 2024-05-13 14:48:00 24.89 kg/m2 [facility] Oxygen saturation in Arterial blood by Pulse oximetry 2024-05-13 14:48:00 97 /min [facility] Systolic blood pressure 2024-04-30 13:10:00 118 mm[Hg] [facility] acute hospital Diastolic blood pressure 2024-04-30 13:10:00 76 mm[Hg] [facility] acute hospital Heart rate 2024-04-30 13:10:00 72 /min [facility] Body temperature 2024-04-30 13:10:00 36.11 Meredith [facility] Body height 2024-04-30 13:10:00 167.6 cm [facility] Body weight 2024-04-30 13:10:00 69.673 kg [facility] BMI 2024-04-30 13:10:00 24.79 kg/m2 [facility] Systolic blood pressure 2024-01-29 18:25:00 109 mm[Hg] [facility] acute hospital Diastolic blood pressure 2024-01-29 18:25:00 68 mm[Hg] [facility] acute hospital Heart rate 2024-01-29 18:25:00 87 /min [facility] Body temperature 2024-01-29 18:25:00 36.39 Meredith [facility] Body weight 2024-01-29 18:25:00 68.947 kg [facility] BMI 2024-01-29 18:25:00 25.29 kg/m2 [facility] Systolic blood pressure 2023-05-22 15:07:00 118 mm[Hg] [facility] Diastolic blood pressure 2023-05-22 15:07:00 78 mm[Hg] [facility] Heart rate 2023-05-22 15:07:00 70 /min [facility] Body temperature 2023-05-22 15:07:00 36.72 Meredith [facility] Respiratory rate 2023-05-22 15:07:00 14 /min [facility] Body height 2023-05-22 15:07:00 165.1 cm [facility] Body weight 2023-05-22 15:07:00 65.318 [facility] BMI 2023-05-22 15:07:00 23.96 kg[facility]m2 [facility] Oxygen saturation in Arterial blood by Pulse oximetry 2023-05-22 15:07:00 98 /min [facility] Systolic blood pressure 2023-04-25 13:20:00 106 mm[Hg] [facility] acute hospital Diastolic blood pressure 2023-04-25 13:20:00 67 mm[Hg] [facility] acute hospital Heart rate 2023-04-25 13:20:00 78 /min [facility] Body temperature 2023-04-25 13:20:00 36.61 Meredith [facility] Respiratory rate 2023-04-25 13:20:00 16 /min [facility] Body height 2023-04-25 13:20:00 165.1 cm [facility] Body weight 2023-04-25 13:20:00 63.957 kg [facility] BMI 2023-04-25 13:20:00 23.46 kg/m2 [facility] Oxygen saturation in Arterial blood by Pulse oximetry 2023-04-25 13:20:00 96 /min [facility] Systolic blood pressure 2022-11-14 15:09:00 122 mm[Hg] [facility] Diastolic blood pressure 2022-11-14 15:09:00 86 mm[Hg] [facility] Heart rate 2022-11-14 15:09:00 74 /min [facility] Body temperature 2022-11-14 15:09:00 36.61 Meredith [facility] Respiratory rate 2022-11-14 15:09:00 13 /min [facility] Body height 2022-11-14 15:09:00 165.1 [facility] Body weight 2022-11-14 15:09:00 70.308 [facility] BMI 2022-11-14 15:09:00 25.79 kg[facility]m2 [facility] Oxygen saturation in Arterial blood by Pulse oximetry 2022-11-14 15:09:00 98 /min [facility] Systolic blood pressure 2022-05-16 15:15:00 117 mm[Hg] [facility] Diastolic blood pressure 2022-05-16 15:15:00 78 mm[Hg] [facility] Heart rate 2022-05-16 15:15:00 72 /min [facility] Body temperature 2022-05-16 15:15:00 36.56 Meredith [facility] Respiratory rate 2022-05-16 15:15:00 15 /min [facility] Body height 2022-05-16 15:15:00 167.6 cm [facility] Body weight 2022-05-16 15:15:00 70.761 [facility] BMI 2022-05-16 15:15:00 25.18 kg/m2 [facility]alt Oxygen saturation in Arterial blood by Pulse oximetry 2022-05-16 15:15:00 97 /min [facility] Systolic blood pressure 2022-04-19 14:31:00 118 mm[Hg] [facility] acute hospital Diastolic blood pressure 2022-04-19 14:31:00 73 mm[Hg] General acute hospital Heart rate 2022-04-19 14:31:00 87 /min [facility] Body temperature 2022-04-19 14:31:00 36.83 Meredith [facility] Body weight 2022-04-19 14:31:00 71.85 kg [facility] BMI 2022-04-19 14:31:00 26.36 kg/m2 [facility] Procedures Procedure Date / Time Performed Performing Clinician Source POCT MOLECULAR STREP 2024-07-26 18:04:00 Unknown, Atte nding [facility] POCT TEST 2024-04-30 00:00:00 Anna Peterson [facility] WENDI IFA, W/REFL TO TITER/PATTERN/CASCADE 2023-05-22 18:44:00 Clarisa Burk [facility] ASSIGNMENT OF BENEFITS 2023-04-25 13:04:02 Docto r Unassigned, [place] Altos [facility] CONSENT FOR CONTRACEPTION 2022-04-19 05:01:00 Doctor Unassigned, [place] [facility] POCT TEST 2022-04-19 00:00:00 Anna Peterson [facility] Encounters Start Date/Time End Date/Time Encounter Type Admission Type Attending Clinicians Care Facility Care Department Encounter ID Source 2023-01-08 13:53:[address] [facility] [id number] [facility] 2023-01-07 06:48:[address] [facility] [id number] [facility] 2022-11-20 15:48:[address] [facility] [id number] [facility] 2022-11-14 10:02:[address] [facility] [id number] [facility] 2022-11-05 12:17:[address] [facility] [id number] [facility] 2021-09-21 15:12:[address] [facility] [id number] [facility] 2021-03-06 13:20:[address] [facility] [id number] [facility] 2021-03-06 13:20:[address] [facility] [id number] [facility] 2024-07-26 11:40:00 2024-07-26 12:00:00 Urgent Care Maurice Reyna Unknown, Attending [facility] [id number] 350.1.13.10 4.2.7.2.686 [id number] [facility] 2024-07-26 11:40:00 2024-07-26 11:40:00 Outpatient R MAURICE REYNA [facility] [id number] [facility] 2024-06-17 00:00:00 2024-07-24 18:26:55 Patient Secure Msg Doctor Unassigned, [place] Doctor Unassigned, [place] [facility] (PAYAM) [id number] 350.1.13.10 4.2.7.2.686 [id number] [facility] 2024-06-22 00:00:00 2024-07-24 18:21:39 Patient Secure Msg Doctor Unassigned, [place] Doctor Unassigned, [place] [facility] (PAYAM) [id number] 350.1.13.10 4.2.7.2.686 [id number] [facility] 2024-05-13 10:00:00 2024-05-13 11:10:25 Outpatient R HAMIDA MAN [facility] [id number] [facility] 2024-05-13 10:00:00 2024-05-13 11:10:25 Office Visit Donovan [facility] 1.0.114 350.1.13.10 4.2.7.2.686 [id number] [facility] 2024-05-13 00:00:00 2024-05-13 11:05:44 Telephone Donovan [facility] 1.20.114 350.1.13.10 4.2.7.2.686 [id number] [facility] 2024-04-30 08:00:00 2024-04-30 08:46:36 Outpatient R ANNA PETERSON VIEN [facility] [id number] [facility] 2024-04-30 08:00:00 2024-04-30 08:46:36 Office Visit Anna Peterson [facility] 1.20.114 350.1.13.10 4.2.7.2.686 [id number] [facility] 2024-03-11 08:00:00 2024-03-11 08:14:33 Telemedici Payam Crocker [facility] [address] [id number] 350.1.13.58 9.2.7.2.686 [id number] [facility] 2024-01-29 13:30:00 2024-01-29 14:12:54 Outpatient R ANNA PETERSON [facility] [id number] [facility] 2024-01-29 13:30:00 2024-01-29 14:12:54 Office Visit Anna Peterson [facility] 1.2840.114 350.1.13.10 4.2.7.2.686 [id number] [facility] 2023-08-05 11:00:00 2023-08-05 11:00:[address] [facility] [id number] [facility] 2023-06-19 16:00:00 2023-06-19 16:00:[address] [facility] [id number] [facility] 2023-05-22 10:00:00 2023-05-22 12:01:54 Office Visit Payam Wilson [facility] [address] [facility] 1.2840.114 350.1.13.58 9.2.7.2.686 [id number] [facility] 2023-04-25 08:30:00 2023-04-25 08:36:27 Outpatient R ANNA PETERSON [facility] [id number] [facility] 2023-04-25 08:30:00 2023-04-25 08:36:27 Office Visit Anna Peterson [facility] 1.20.114 350.1.13.10 4.2.7.2.686 [id number] [facility] 2023-04-25 00:00:00 2023-04-25 00:00:00 Orders Only Doctor Unassigned, [place] [facility] 1.2840.114 350.1.13.10 4.2.7.2.686 [id number] [facility] 2023-01-09 14:00:00 2023-01-09 14:00:[address] [facility] [id number] [facility] 2022-11-14 10:00:00 2022-11-14 10:59:02 Office Visit Payam Wilson [facility] [address] 1.84.114 350.1.13.58 9.2.7.2.686 [id number] [facility] 2022-05-16 10:00:00 2022-05-16 11:19:59 Office Visit Payam Wilson [facility] [address] 1.284.114 350.1.13.58 9.2.7.2.686 [id number] [facility] 2022-04-19 09:30:00 2022-04-19 10:05:41 Outpatient ANNA STEPHENS [facility] [id number] [facility] 2022-04-19 09:30:00 2022-04-19 10:05:41 Outpatient ANNA STEPHENS [facility] [id number] [facility] 2022-04-19 09:30:00 2022-04-19 10:05:41 Office Visit Anna Peterson [facility] 1..114 350.1.13.10 4.2.7.2.686 [id number] [facility] 2022-04-19 09:30:00 2022-04-19 09:30:00 [facility] [facility] [id number] [facility] 2022-04-19 09:30:00 2022-04-19 09:30:00 Outpatient Bea [facility] [id number] [facility] 2022-04-19 00:00:00 2022-04-19 00:00:00 Orders Only Doctor Unassigned, [place] [facility] 1.84.114 350.1.13.10 [id number] [id number] [facility] 2022-04-12 00:00:00 2022-04-12 00:00:00 Pre Visit Outreach Janelle Carrion [id number] 350.1.13.10 [id number] [id number] [facility] 2022-04-10 00:00:00 2022-04-10 00:00:00 RefAnna Gunn [facility] [id number] 350.1.13.10 [id number] [id number] [facility] 2022-02-11 00:00:00 2022-02-11 00:00:00 Telephone Payam Wilson [address] [id number] [id number] [id number] [id number] [facility] 2021-12-13 10:00:00 2021-12-13 11:04:02 Office Visit Payam Wilson [address] [id number] [id number] [id number] [id number] [facility] 2021-10-05 00:00:00 2021-10-05 00:00:00 Telephone Payam Wilson [address] [id number] [id number] [id number] [id number] [facility] 2021-09-11 00:00:00 2021-09-11 00:00:00 Orders Only Doctor Unassigned, [place] [facility] [id number] 350.1.13.10 [id number] [id number] [facility] 2021-04-13 14:00:00 2021-04-13 14:00:00 Outpatient ANNA STEPHENS [facility] [id number] [facility] Results Test Description Test Time Test Comments Results Result Co mments Source [id number] 13:14:00* Test Item Value Reference Range Interpretation Comme [facility] POCT PREG (test code = 1605) Negative On board controls acceptable with C Line (test code = 3574) Yes POCT PREG LOT # (test code = 3575) POCT PREG TEST DATE ( test code = 3576) [facility], W/REFL TO TITER/PATTERN/CASCADE 2023-05-24 15:40:00* Test Item Value Reference Range Interpretation Comme [facility] WENDI SCREEN, IFA (test code = 46097-5) NEGATIVE NEGATIVE WENDI IFA is a fir st line screen for detecting thepresence of up to approximately 150 autoantibodies invarious autoimmune diseases. A negative WENDI IFA resultsuggests an WENDI-associated autoimmune disease is notpresent at this time, and does not reflex further. Ifthere is high clinical suspicion for Sjogren's syndrome,testing for anti-SS-A/Ro antibody should be considered.Anti-Rachele-1 antibody should be considered for clinicallysuspected inflammatory myopathies. AC-0: Negative International Consensus on WENDI Patterns(https://doi.org/ 10.1515/mkzx-4982-0663) For additional information, please refer tohttp://education.[employer]/faq/OIB829 (This link is being provided for informational/educational purposes only.) ? REPORT COMMENT:FASTING:YESSPECIA LIZED COLLECTION. PATIENT REFERRED TO ALTERNATE SITE. RAC (test code = RAC) Performing Organization Information: ? ?Site ID: ? ?[facility] ? ?Address: [address] [place] [id number] ? ?Director: SARA TOSCANO MD [facility] [id number] 14:37:00* Test Item Value Reference Range Interpretation Comme nts POCT PREG (test code = 1605) Negative On board controls acceptable with C Line (test code = 3574) Yes POCT PREG LOT # (test code = 3575) POCT PREG TEST DATE ( test code = 3576) [facility] Notes Date/Time Note Provider Source 2024-05-19 12:17:05 Sent Samares message on 05/14 with estimate and requested a call back to schedule which patient has viewed with no response. Called and Left voicemail today to schedule procedure. Jaclynbrina Rubio [facility] 2024-05-13 11:04:50 Case request entered at this time. Patient would like to be scheduled sometime in June and will need a 2 week post op appointment. Message routed to [facility] at this time. Aide Adames RN [facility] 2013-08-06 12:00:00 EXAM: MRI BRAIN WITHOUT AND WITH CONTRAST DATE: Aug 06, 2013 11:41:00 AM INDICATION: Multiple sclerosis COMPARISON: August 07, 2012 [facility] TECHNIQUE: Sagittal T1, axial T2, axial FLAIR, axial T2 star, coronal T2, and axial diffusion-weighted images of the brain are obtained. Axial T1-weighted images are also provided prior to administration of intravenous contrast material. After the uneventful administration of 10 ml of Omniscan intravenous gadolinium, sagittal, axial and coronal post postcontrast T1-weighted images were performed.] FINDINGS: No enhancing foci are evident in the parenchyma to indicate an acute demyelinating lesion. There is no interval change in the numerous periventricular foci of T2 elevation in the cerebral hemispheres bilaterally when compared with the prior study. Lesions in the left thalamus are felt to have been present on the patient's previous exam although poorly visualized. Areas of abnormal signal in the midbrain, however, are difficult to compare as the current study is performed at 3 [place] and the previous exam was performed on a lower field strength imaging unit, lowering sensitivity. A fairly large lesion laterally at the junction of the left cerebral peduncle and midbrain was present on the patient's previous exam. However, a smaller (3 mm) lesion in the periaqueductal region more superiorly on the right is not conclusively identified. The appearance of the remainder of the brain parenchyma is also unchanged. Incidental imaging of the orbits, paranasal sinuses, skull, and skull base demonstrates no interval change. Appropriate flow-voids are present in the vessels at the base of the brain. IMPRESSION: No enhancing lesions are present. A small periaqueductal lesion is identified in the midbrain on the right. It is unclear whether this is pre-existing or an interval change due to differences in field strength between the 2 studies. Other periventricular and parenchymal lesions are unchanged and consistent with the patient's history of demyelinating disease. ZHANG William
[2024-07-28] MEDS ORDERED: METHYLPREDNISOLONE 125 MG INJ ONE (08:08)
--- NOTE | 2024-07-28 08:46 | EDPHYS ---
Physician Documentation [facility] Name: Brandy Mathis Age: 38 yrs Sex: Female : 1985 Arrival Date: 07/28/2024 Time: 07:28 Bed 4 Private MD: ED Physician Bc Peters HPI: 07/28 08:38 This 38 yrs old Female presents to ER via Ambulatory with complaints of Rash - rn Joint pain. 08:38 The patient's rash thought to be caused by an unknown cause. Onset: The rn symptoms/episode began/occurred 3 day(s) ago. Associated signs and symptoms: Pertinent positives: Joint aches. Severity of symptoms: At their worst the symptoms were moderate in the emergency department the symptoms are unchanged. The patient has not experienced similar symptoms in the past. Patient reports 3 days of diffuse erythematous rash associated with joint pain in all of her joints. Had low-grade fever few days ago, seen at urgent care and tested positive for strep. Currently taking antibiotics. No longer febrile. 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 Historical: - Allergies: 07:40 No Known Allergies; iw - Home Meds: 07:40 Otezla 30 mg oral tablet 2 times per day [Active]; Kesimpta Pen 20 mg/0.4 mL iw subcutaneous Pen Injector [Active]; - PMHx: 07:39 Multiple Sclerosis; iw - Immunization history:: Adult Immunizations up to date. - Infectious Disease History:: Denies. - Family history:: not pertinent. - Social history:: Smoking status: Patient denies any tobacco usage or history of. - Hospitalizations: : No recent hospitalization is reported. ROS: 08:38 Constitutional: Negative for chills, and weight loss, Neck: Negative for injury, pain, rn and swelling, Cardiovascular: Negative for chest pain, palpitations, and edema, Respiratory: Negative for shortness of breath, cough, wheezing, and pleuritic chest pain, Abdomen/GI: Negative for abdominal pain, nausea, vomiting, diarrhea, and constipation, Back: Negative for injury and pain, MS/Extremity: Positive for diffuse joint aches Skin: Positive for rash Neuro: Negative for headache, weakness, numbness, tingling, and seizure, Exam: 08:38 Constitutional: This is a well developed, well nourished patient who is awake, alert, rn and in no acute distress. Ambulatory to room without difficulty or assistance Cardiovascular: Regular rate and rhythm. No pulse deficits. Respiratory: No increased work of breathing, no retractions or nasal flaring. Skin: Diffuse papular erythematous rash on torso and upper extremities. No petechiae. MS/ Extremity: Pulses equal, no cyanosis. Neurovascular intact. Full, normal range of motion. Equal circumference. No focal joint swelling or warmth. No limitation of range of motion Vital Signs: 07:36 BP 109 / 85; Pulse 97; Resp 16; Temp 98.5(O); Pulse Ox 100% on R/A; iw 08:50 BP 110 / 78; Pulse 90; Resp 15; Pulse Ox 99% ; ko1 MDM: 07:35 Medical Screening Exam initiated rn 08:38 Differential diagnosis: Autoimmune disorder, reactive arthritis. Data reviewed: vital rn signs, nurses notes, and as a result, I will discharge patient. Counseling: I had a detailed discussion with the patient and/or guardian regarding the historical points, exam findings, and any diagnostic results supporting the discharge/admit diagnosis, the need for outpatient follow up, to return to the emergency department if symptoms worsen or persist or if there are any questions or concerns that arise at home. Special discussion: I discussed with the patient/guardian in detail that at this point there is no indication for admission to the hospital. It is understood, however, that if the symptoms persist or worsen the patient needs to return immediately for re-evaluation. ED course: Will place patient on steroids for likely reactive arthritis or autoimmune complication. Urged her to follow-up with her quality system manager for further testing as her torso exhibits hyperpigmentation and patient already with autoimmune problems.. Administered Medications: 08:13 Drug: MethylPREDNISolone Sodium Succinate IM 125 mg IM once Route: IM; Site: right ko1 deltoid; 08:43 Follow up: Response: No adverse reaction ko1 Disposition Summary: 07/28/24 08:46 Discharge Ordered Notes: Location: Home rn Problem: new rn Symptoms: are unchanged rn Condition: Stable rn Diagnosis - Rash and other nonspecific skin eruption rn - Pain in joints rn Followup: rn - With: Private Physician - When: As needed - Reason: Recheck today's complaints, Re-evaluation by your physician Discharge Instructions: - Discharge Summary Sheet rn - Rash, Adult rn Forms: - Medication Reconciliation Form rn - Antibiotic inspector government property - Prescription Opioid Use rn - Patient Portal Instructions rn - Leadership Thank You Letter rn Prescriptions: - Prednisone 20 mg Oral Tablet - take 3 tablets ORAL route once daily for 5 days; 15 tablet; Refills: 0, Product rn Selection Permitted Signatures: Melinda Blum RN cB Myers MD MD rn Oliver, Kathy, RN RN ko1 Corrections: (The following items were deleted from the chart) 08:42 08:38 Constitutional: This is a well developed, well nourished patient who is awake, rn alert, and in no acute distress. Ambulatory to room without difficulty or assistance Cardiovascular: Regular rate and rhythm. No pulse deficits. Respiratory: No increased work of breathing, no retractions or nasal flaring. MS/ Extremity: Pulses equal, no cyanosis. Neurovascular intact. Full, normal range of motion. Equal circumference. No focal joint swelling or warmth. No limitation of range of motion rn
--- NOTE | 2024-07-28 08:46 | ER ---
Nurse's Notes [facility] Name: Brandy Mathis Age: 38 yrs Sex: Female : 1985 Arrival Date: 07/28/2024 Time: 07:28 Bed 4 Private MD: Diagnosis: Rash and other nonspecific skin eruption;Pain in joints Presentation: 07/28 07:36 Chief complaint: Patient states: rash started on Friday , started in her knee but iw spread to her whole body , tested positive for strep on Friday, has been on amoxicillin, is having joint pain, her PCP started her on cefpodoxime. Coronavirus screen: At this time, the client does not indicate any symptoms associated with coronavirus-19. Ebola Screen: No symptoms or risks identified at this time. Initial Sepsis Screen: Does the patient meet any 2 criteria? No. Patient's initial sepsis screen is negative. Does the patient have a suspected source of infection? No. Patient's initial sepsis screen is negative. Risk Assessment: Do you want to hurt yourself or someone else? Patient reports no desire to harm self or others. Onset of symptoms was July 25, 2024. 07:36 Method Of Arrival: Ambulatory iw 07:36 Acuity: ANN-MARIE 3 iw Historical: - Allergies: 07:40 No Known Allergies; iw - Home Meds: 07:40 Otezla 30 mg oral tablet 2 times per day [Active]; Kesimpta Pen 20 mg/0.4 mL iw subcutaneous Pen Injector [Active]; - PMHx: 07:39 Multiple Sclerosis; iw - Immunization history:: Adult Immunizations up to date. - Infectious Disease History:: Denies. - Family history:: not pertinent. - Social history:: Smoking status: Patient denies any tobacco usage or history of. - Hospitalizations: : No recent hospitalization is reported. Screenin:13 [facility] ED Fall Risk Assessment (Adult) History of falling in the last 3 months, ko1 including since admission No falls in past 3 months (0 pts) Confusion or Disorientation No (0 pts) Intoxicated or Sedated No (0 pts) Impaired Gait No (0 pts) Mobility Assist Device Used No (0 pt) Altered Elimination No (0 pt) Score/Fall Risk Level 0 - 2 = Low Risk Oriented to surroundings, Maintained a safe environment, Educated pt \T\ family on fall prevention, incl call for assistance when getting out of bed, Assessed \T\ reinforced patient's understanding of fall precautions, Hourly rounding (assess needs \T\ fall precautionary measures) done. Abuse screen: Denies threats or abuse. Denies injuries from another. Nutritional screening: No deficits noted. Tuberculosis screening: No symptoms or risk factors identified. Assessment: 08:13 General: Appears in no apparent distress. uncomfortable, Behavior is calm, cooperative, ko1 appropriate for age. Pain: Complains of pain in all over. Neuro: No deficits noted. Cardiovascular: No deficits noted. Respiratory: No deficits noted. GI: No deficits noted. : No deficits noted. EENT: No deficits noted. Derm: No deficits noted. Musculoskeletal: Reports pain in joints. Vital Signs: 07:36 BP 109 / 85; Pulse 97; Resp 16; Temp 98.5(O); Pulse Ox 100% on R/A; iw 08:50 BP 110 / 78; Pulse 90; Resp 15; Pulse Ox 99% ; ko1 ED Course: 07:31 Patient arrived in ED. ra3 07:35 Bc Peters MD is Attending Physician. rn 07:39 Triage completed. iw 07:40 Arm band placed on. iw 07:44 Deena Snyder, JANENE is Primary Nurse. ko1 08:13 Patient has correct armband on for positive identification. Bed in low position. Call ko1 light in reach. Side rails up X 1. Provided Education on: meds. Pulse ox on. NIBP on. Door closed. Noise minimized. Lights dimmed. Warm blanket given. Pillow given. 08:13 No provider procedures requiring assistance completed. ko1 08:48 Patient did not have IV access during this emergency room visit. ko1 Administered Medications: 08:13 Drug: MethylPREDNISolone Sodium Succinate IM 125 mg IM once Route: IM; Site: right ko1 deltoid; 08:43 Follow up: Response: No adverse reaction ko1 Medication: 08:13 VIS not applicable for this client. ko1 Outcome: 08:46 Discharge ordered by . rn 08:50 Discharged to home ambulatory, ko1 08:51 Condition: stable ko1 08:51 Discharge instructions given to patient, Instructed on discharge instructions, follow up and referral plans. medication usage, Demonstrated understanding of instructions, follow-up care, medications, Prescriptions given X 1, 08:51 Patient left the ED. ko1 Signatures: Melinda Blum RN RN iw Bc Peters MD MD rn Oliver, Kathy, RN RN ko1 Yanet Sena ra3 Corrections: (The following items were deleted from the chart) 07:39 07:36 BP 109 / ???; iw iw 07:42 07:36 BP 109 / 85; Pulse 97bpm; Resp 16bpm; Pulse Ox 100% RA; iw iw
[2024-07-28 13:05] VITALS: TEMP 98.5
[2024-07-28 13:06] VITALS: BP 110/78; O2SAT 99
== END 2024-07-28 08:51 | disposition home or self-care (01) ==
LOC: ER 07:28
DX: R21 Rash and other nonspecific skin eruption (principal); M25.50 Pain in unspecified joint
CPT/HCPCS: 96372; 99284; J2919